=== PATIENT | male | born 1940 | race Two or more races ===

== ENCOUNTER 2018-09-19 21:47 | Inpatient (IN) | payer OTHER, MEDICAID ==
[~2018-09-19] VITALS: Ht 175.3 cm; Wt 68.4 kg
[~2018-09-19 21:47] MED LIST: CHOL20007 PO; CYAN100042 PO; NORT25CA PO; RASA1TAB PO
[2018-09-19] MEDS ORDERED: ACETAMINOPHEN 325 MG TAB PO ONE (22:15)
[2018-09-19 22:47] LABS: Potassium 3.7 mmol/L (3.5-5.1)
[2018-09-19 22:49] LABS: Albumin 2.4 g/dL (3.4-5.0); Calcium 8.1 mg/dL (8.5-10.1)
[2018-09-19 22:55] LABS: Bilirubin, Total 0.9 mg/dL (0.2-1.0); Hematocrit 37.8 % (41.0-53.0); Hemoglobin 12.6 g/dL (13.5-17.5); Mean Corpuscular Hemoglobin 29.1 pg (28.0-32.0); Mean Corpuscular Hgb Conc. 33.4 g/dL (32.0-36.0); Mean Corpuscular Volume 87.3 fL (80.0-100.0); Platelet Count (auto) 176 10^3/uL (140-450); Red Blood Cells 4.33 10^6/uL (4.5-5.90); Red Cell Distribution Width 14.6 % (11.8-14.3); Total Protein 6.4 g/dL (6.4-8.2)
[2018-09-19 22:56] LABS: Lactic Acid w/Reflex 5.8 mmol/L (0.4-2.0)
[2018-09-19 22:58] LABS: White Blood Cell 1.4 10^3/uL (4.4-10.8)
[2018-09-19 22:59] LABS: Basophils % (manual) 0 (0.0-2.0); Blast Cells 0; Eosinophils % (manual) 0 (0-7); Metamyelocytes % 0; Myelocytes % 0; Promyelocytes % 0; Reactive Lymphocytes 0
[2018-09-19 23:13] LABS: Band Neutrophils % (manual) 2; Lymphocytes % (manual) 11 (10.0-50.0); Monocytes % (manual) 4 (0-12)
[2018-09-20] VITALS (65 sets, daily range): BP systolic 89–151; BP diastolic 31–91
[2018-09-20] MEDS ORDERED: SODIUM CHLORIDE 0.9% 1,900 ML IV ONE
[2018-09-20] MEDS ORDERED: PIPERACILLIN-TAZOB 3.375GM 100 ML IV ONE
[2018-09-20] MEDS ORDERED: LORazepam 2MG/ML-1ML VIAL IV ONE
[2018-09-20] MEDS ORDERED: VANCOMYCIN 1GM/250ML 250 ML IV ONE (00:45)
[2018-09-20] MEDS ORDERED: SODIUM CHLORIDE 0.9% 1,000 ML IV ONE ×2 (01:45→16:45)
[2018-09-20] MEDS ORDERED: NOREPINEPHRINE 8 MG/250ML KIT 250 ML IV ONE (01:53)
[2018-09-20] MEDS: NOREPINEPHRINE 8 MG/250ML KIT 250 ML IV SCH (02:06)
[2018-09-20] MEDS ORDERED: ACETAMINOPHEN 325 MG TAB PO PRN (03:00)
[2018-09-20] MEDS ORDERED: ALBUMIN 5% 250 ML IV ONE (03:00)
[2018-09-20] MEDS ORDERED: VANCOMYCIN PER PHARMACY 0 MG IV SCH (03:00)
[2018-09-20] MEDS ORDERED: SODIUM CHLORIDE 0.9% 1,000 ML IV SCH (03:00)
[2018-09-20] MEDS ORDERED: MORPHINE SULF INJ 2 MG/ML SYRINGE 1ML IV PRN (03:00)
[2018-09-20] MEDS ORDERED: HYDROcodone-ACET 5/325MG TAB PO PRN (03:00)
[2018-09-20] MEDS ORDERED: ONDANSETRON HCL 4 MG/2 ML VIAL IV PRN (03:00)
[2018-09-20] MEDS ORDERED: NITROGLYCERIN 0.4 MG SL TAB SL PRN (03:00)
[2018-09-20 03:43] LABS: Urine Bacteria MANY /hpf (None Seen); Urine Blood 2+ /uL (Negative); Urine Specific Gravity 1.011 (1.001-1.035); Urine WBC 943 /hpf (0 - 3); Urine WBC Clumps PRESENT /hpf (None Seen)
[2018-09-20] MEDS ORDERED: FILGRASTIM(TBO) 480 MCG/0.8 ML SYRG SC ONE (04:00)
--- NOTE | 2018-09-20 05:08 | NUR ---
Pt being admitted to ICU from [facility] C admitted to ICU via gurney on bow maker custom, and portable 02. Patient transferred to bed, connected to ICU monitoring and oxygen, and weighed by bed scale. Patient oriented to Jolly hunt RN, unit, room, bed, and unit policies regarding patient care and visiting hours. All questions and concerns addressed, patient verbalized understanding. NOTE: in the ICU waiting area
--- NOTE | 2018-09-20 05:20 | NUR ---
AT BEDSIDE Talked to patient's Ampella. She speaks Romanian as well but was able to understand and talk a little bit [place]. Admission assessment done with
--- NOTE | 2018-09-20 05:31 | NUR ---
THE FOLLOWING CONSULTS WERE PLACED BY ER: CARDIO: DR TRACEY NEPHRO: DR MUIR HEMATO/ONCO: DR ARELLANO
[2018-09-20] MEDS ORDERED: POM PO (05:47)
[2018-09-20] MEDS ORDERED: TAMS0.4C36 PO (05:48)
[2018-09-20] MEDS: PIPERACILLIN-TAZOB 2.25GM 50 ML IV SCH ×3 (06:22→18:15)
--- NOTE | 2018-09-20 06:58 | NUR ---
GRANIX ORDER GRANIX ORDER JUST CAME OUT FROM [facility] BUT TIMED AT 0400HRS WILL CALL PHARMACY TO SUPPLY
--- NOTE | 2018-09-20 07:00 | NUR ---
REPORT REPORT GIVEN TO NAM CAROLINA
--- NOTE | 2018-09-20 07:00 | NUR ---
CARBIDOPA MEDICATION NOT AVAILABLE IN [facility] CALLED PHARMACIST TO SUPPLY
--- NOTE | 2018-09-20 07:00 | NUR ---
SBAR REPORT RECEIVED FROM NAM SEE. SEE PX.
[2018-09-20] MEDS: CARBIDOPA W LEVODOPA 10/100mg TABLET PO SCH ×3 (08:14→22:23)
[2018-09-20] MEDS ORDERED: SODIUM BICARBONATE 50ML VIAL 50 ML in D5W/SOD CHL 0.45% 1,000 ML IV SCH (10:00)
--- NOTE | 2018-09-20 10:00 | NUR ---
DR. MUIR AT BEDSIDE-BICARB DRIP AND U/A ORDERED.
[2018-09-20] MEDS: ASPirin 81 mg TAB PO SCH (10:21)
[2018-09-20] MEDS ORDERED: SODIUM BICARBONATE 8.4% INJ 50ML SYRINGE ONE (10:24)
[2018-09-20 10:46] LABS: Protein, Urine 70.3 mg/dL (0.0-11.9)
--- NOTE | 2018-09-20 13:25 | NUR ---
DR. TRACEY AWARE OF TROPS AND ORDERED ECHO.
--- NOTE | 2018-09-20 13:31 | NUR ---
PATIENT SEEN BY DR. MUIR- URINE ORDERED AND SENT. CHANGED IVF TO 06/07 NS BICARB.
--- NOTE | 2018-09-20 13:46 | NUR ---
PER RENAL US CARUSO IN THE PROSTATIC AREA-AFTER DEFLATING 10CC BALLOON -REINSERTED THE CARUSO, AND IRRIGATED. HOWEVER, CARUSO WAS DRAINING WELL ALL MORNING.
--- NOTE | 2018-09-20 16:25 | NUR ---
PATIENT WITH LABILE BLOOD PRESSURE-ONLY ABLE TO TITRATE IN SMALL INCREMENTS AT A TIME.
--- NOTE | 2018-09-20 16:30 | NUR ---
SPOKE WITH DR. GUERRERO AND CYSTOSCOPY ORDERED FOR TOMORROW- (CARUSO PLACEMENT).
--- NOTE | 2018-09-20 16:43 | NUR ---
DR. SARMIENTO AT BEDSIDE- AWARE OF BLOOD CULTURES (PATIENT ON ZOSYN). ORDERED ONE LITER BOLUS.
--- NOTE | 2018-09-20 16:58 | NUR ---
CARUSO CATHETER STILL DRAINING HOWEVER, ANOTHER RENAL US ORDER AND ATTEMPTED TO ADVANCE FOR THE 2ND TIME AND UNSUCCESSFUL. LEFT MESSAGE FOR DR. GUERRERO FOR STAT CARUSO PLACEMENT.
[2018-09-20] MEDS ORDERED: LIDOCAINE 2% JELLY 11ml (GLYDO) ONE (17:06)
[2018-09-20] MEDS ORDERED: FILGRASTIM (TBO) 300 MCG/0.5 ML SYRG SC SCH (17:30)
[2018-09-20] MEDS ORDERED: FILGRASTIM(TBO) 480 MCG/0.8 ML SYRG SC SCH (18:00)
[2018-09-20 18:28] LABS: Hemoglobin 10.5 g/dL (13.5-17.5)
[2018-09-20 18:31] LABS: Hematocrit 31.7 % (41.0-53.0); Mean Corpuscular Hgb Conc. 33.3 g/dL (32.0-36.0); Mean Corpuscular Volume 87.3 fL (80.0-100.0); Platelet Count (auto) 169 10^3/uL (140-450); Red Blood Cells 3.63 10^6/uL (4.5-5.90); Red Cell Distribution Width 15.5 % (11.8-14.3)
[2018-09-20 18:47] LABS: BUN/Creatinine Ratio 22.2; Calcium 7.3 mg/dL (8.5-10.1); INR 1.11 (0.9-1.15); Magnesium 2.1 mg/dL (1.6-2.6); Partial Thromboplastin Time 32.4 sec (23.78-33.04); Potassium 3.7 mmol/L (3.5-5.1); Prothrombin Time 11.8 sec (9.27-12.13)
[2018-09-20 18:49] LABS: Bilirubin, Total 1.4 mg/dL (0.2-1.0); Total Protein 5.4 g/dL (6.4-8.2)
[2018-09-20 19:05] LABS: White Blood Cell 33.2 10^3/uL (4.4-10.8)
[2018-09-20 19:06] LABS: Basophils % (manual) 0 (0.0-2.0); Blast Cells 0; Eosinophils % (manual) 0 (0-7); Metamyelocytes % 0; Myelocytes % 0; Promyelocytes % 0; Reactive Lymphocytes 0
--- NOTE | 2018-09-20 19:26 | NUR ---
DR. ARVIZU AT BEDSIDE- D/C [facility] [place] WBC'S ELEVATED.
[2018-09-20 19:32] LABS: Red Blood Cells 3.48 10^6/uL (4.5-5.90)
[2018-09-20 19:37] LABS: Hematocrit 30.4 % (41.0-53.0); Hemoglobin 10.2 g/dL (13.5-17.5); Mean Corpuscular Hemoglobin 29.2 pg (28.0-32.0); Mean Corpuscular Hgb Conc. 33.4 g/dL (32.0-36.0); Mean Corpuscular Volume 87.4 fL (80.0-100.0); Platelet Count (auto) 156 10^3/uL (140-450); Red Cell Distribution Width 14.9 % (11.8-14.3)
--- NOTE | 2018-09-20 19:59 | NUR ---
SBAR REPORT GIVEN TO NAM ASLDANA.
[2018-09-20 20:12] LABS: White Blood Cell 30.8 10^3/uL (4.4-10.8)
[2018-09-20 20:13] LABS: Basophils % (manual) 0 (0.0-2.0); Blast Cells 0; Eosinophils % (manual) 0 (0-7); Metamyelocytes % 0; Myelocytes % 0; Promyelocytes % 0; Reactive Lymphocytes 0
--- NOTE | 2018-09-20 20:35 | NUR ---
provided pt. with frank-care as pt. had bm-moderate, brown, soft, formed; pt. also had partial linen change.
[2018-09-20 21:11] LABS: Band Neutrophils % (manual) 21; Lymphocytes % (manual) 2 (10.0-50.0)
[2018-09-20 21:12] LABS: Monocytes % (manual) 4 (0-12)
[2018-09-20 21:21] LABS: Band Neutrophils % (manual) 21; Lymphocytes % (manual) 1 (10.0-50.0); Monocytes % (manual) 3 (0-12)
--- NOTE | 2018-09-20 23:00 | NUR ---
computers are on down time from [id number], see chart for hard copy of vs, assessments, and interventions.
[2018-09-20] MEDS: SODIUM BICARBONATE 50ML VIAL 50 ML in D5W/SOD CHL 0.45% 1,000 ML IV SCH (23:55)
[2018-09-21] VITALS (44 sets, daily range): BP systolic 99–147; BP diastolic 41–80
[2018-09-21] MEDS: NOREPINEPHRINE 8 MG/250ML KIT 250 ML IV SCH (01:45)
[2018-09-21 05:48] LABS: Hematocrit 31.6 % (41.0-53.0); Hemoglobin 10.5 g/dL (13.5-17.5); Mean Corpuscular Hemoglobin 28.8 pg (28.0-32.0); Mean Corpuscular Hgb Conc. 33.2 g/dL (32.0-36.0); Mean Corpuscular Volume 86.8 fL (80.0-100.0); Platelet Count (auto) 163 10^3/uL (140-450); Red Blood Cells 3.64 10^6/uL (4.5-5.90); Red Cell Distribution Width 14.9 % (11.8-14.3)
[2018-09-21 05:51] LABS: Basophils % (manual) 0 (0.0-2.0); Blast Cells 0; Eosinophils % (manual) 0 (0-7); Metamyelocytes % 0; Myelocytes % 0; Promyelocytes % 0; Reactive Lymphocytes 0; White Blood Cell 32.7 10^3/uL (4.4-10.8)
[2018-09-21] MEDS: PIPERACILLIN-TAZOB 2.25GM 50 ML IV SCH ×2 (06:01)
[2018-09-21 06:03] LABS: INR 1.09 (0.9-1.15); Partial Thromboplastin Time 32.4 sec (23.78-33.04); Prothrombin Time 11.6 sec (9.27-12.13)
[2018-09-21 06:11] LABS: Potassium 3.2 mmol/L (3.5-5.1)
[2018-09-21 06:20] LABS: BUN/Creatinine Ratio 23.1; Bilirubin, Direct 0.8 mg/dL (0-0.2); Calcium 7.7 mg/dL (8.5-10.1); Magnesium 2.2 mg/dL (1.6-2.6); Total Protein 5.5 g/dL (6.4-8.2)
[2018-09-21] MEDS: CARBIDOPA W LEVODOPA 10/100mg TABLET PO SCH ×3 (06:24→21:41)
--- NOTE | 2018-09-21 06:24 | NUR ---
brushed pt. teeth per request and washed face.
--- NOTE | 2018-09-21 07:00 | NUR ---
SBAR report received from Agatha. See Px assessment.
--- NOTE | 2018-09-21 08:20 | NUR ---
Patient seen by Dr. Sevilla ([facility] and Christ) ordered for elevated WBC's (zosyn discontinued).
[2018-09-21] MEDS ORDERED: VANCOMYCIN 1GM/250ML 250 ML IV ONE (08:30)
[2018-09-21 09:42] LABS: Band Neutrophils % (manual) 24; Lymphocytes % (manual) 1 (10.0-50.0); Monocytes % (manual) 4 (0-12)
[2018-09-21] MEDS: SODIUM BICARBONATE 50ML VIAL 50 ML in D5W/SOD CHL 0.45% 1,000 ML IV SCH (10:00)
[2018-09-21] MEDS: MEROPENEM 1GM IVPB 100 ML IV SCH ×2 (10:07→21:52)
[2018-09-21] MEDS: ASPirin 81 mg TAB PO SCH (10:11)
--- NOTE | 2018-09-21 11:11 | NUR ---
Dr. Jorgensen at bedside- inserted coude catheter with lidocaine jelly. Per Dr. Jorgensen patient had prior surgery and requires a 30cc balloon inserted because the 10cc balloon would retract back in the urethra prostate area,. Patient tolerated well. at bedside. Addendum: 09/21/18 at 1534 by Bre Sifuentes RN No surgery required (cystoscopy cancelled).
--- NOTE | 2018-09-21 12:25 | NUR ---
Patient seen by Dr. Rowland- [facility] and oral potassium order for low phos and k+.
[2018-09-21] MEDS ORDERED: POTASSIUM CHL 20 Meq TABLET PO ONE (12:30)
[2018-09-21] MEDS ORDERED: POTASSIUM PHOSPHATE 44 MEQ in D5W 5% 250 ML IV ONE (12:30)
--- NOTE | 2018-09-21 15:31 | NUR ---
RADHAAR report given to NAM Márquez. Patient will be going to room 295B. Addendum: 09/21/18 at 1625 by Bre Sifuentes RN changed to room 277B.
--- NOTE | 2018-09-21 16:15 | NUR ---
Patient transported to room 277B- patient on tele box and portable oxygen, tolerating well.
--- NOTE | 2018-09-21 16:30 | NUR ---
PATIENT TRANSFERRED FROM ICU TO TELEMETRY, ROOM 277B. PATIENT AND FAMILY MEMBERS ORIENTED TO RN AND ROOM. NO SIGNS OF DISTRESS OT PAIN. CALL ROBERT WITHING REACH AND BED IN LOWEST LOCKED POSITION WITH SIDE RAILS UP X2. WILL CONTINUE TO MONITOR PATIENT. ENCOURAGED TO CALL IF THEY NEED ANYTHING.
--- NOTE | 2018-09-21 19:41 | NUR ---
RECEIVED REPORT FROM DAY RN POC REVIEWED
--- NOTE | 2018-09-21 20:20 | NUR ---
PT POSITIONED Q 2 HR, POSITIONED WITH HOB UP, NO C/O PAIN OR DISCOMFORT,CALL LIGHT WITHIN REACH BED ALARM INTACT, F/C TO GRAVITY
[2018-09-21 21:49] LABS: Basophils # (auto) 0.1 uL; Basophils % (auto) 0.2 % (0.0-2.0); Eosinophils # (auto) 0 uL; Eosinophils % (auto) 0.1 % (0.0-7.0); Hematocrit 31.8 % (41.0-53.0); Hemoglobin 10.5 g/dL (13.5-17.5); Lymphocytes # (auto) 0.6 uL; Lymphocytes % (auto) 2.3 % (10.0-50.0); Mean Corpuscular Hemoglobin 28.9 pg (28.0-32.0); Mean Corpuscular Hgb Conc. 33.1 g/dL (32.0-36.0); Mean Corpuscular Volume 87.4 fL (80.0-100.0); Monocytes # (auto) 0.8 uL; Monocytes % (auto) 3.1 % (0.0-12.0); Neutrophils # (auto) 24.5 uL; Neutrophils % (auto) 94.3 % (37.0-80.0); Platelet Count (auto) 157 10^3/uL (140-450); Red Blood Cells 3.64 10^6/uL (4.5-5.90); Red Cell Distribution Width 15.6 % (11.8-14.3)
[2018-09-21 21:57] LABS: Calcium 7.8 mg/dL (8.5-10.1); Potassium 3.4 mmol/L (3.5-5.1)
[2018-09-21 22:00] LABS: BUN/Creatinine Ratio 22.5
[2018-09-22] MEDS: SODIUM BICARBONATE 50ML VIAL 50 ML in D5W/SOD CHL 0.45% 1,000 ML IV SCH ×2 (00:10→03:06)
[2018-09-22 05:01] VITALS: BP 103/62
--- NOTE | 2018-09-22 05:06 | NUR ---
turned and repositioned with hob up resp even and unlabored, denies pain or discomfort, call light within reach
[2018-09-22 05:57] LABS: Basophils # (auto) 0 uL; Basophils % (auto) 0.2 % (0.0-2.0); Eosinophils # (auto) 0.1 uL; Eosinophils % (auto) 0.3 % (0.0-7.0); Hematocrit 30.3 % (41.0-53.0); Hemoglobin 10.2 g/dL (13.5-17.5); Lymphocytes # (auto) 0.8 uL; Lymphocytes % (auto) 3.5 % (10.0-50.0); Mean Corpuscular Hemoglobin 28.9 pg (28.0-32.0); Mean Corpuscular Hgb Conc. 33.7 g/dL (32.0-36.0); Mean Corpuscular Volume 85.6 fL (80.0-100.0); Monocytes # (auto) 0.7 uL; Monocytes % (auto) 3.1 % (0.0-12.0); Neutrophils # (auto) 20.7 uL; Neutrophils % (auto) 92.9 % (37.0-80.0); Nucleated Red Blood Cells % 0.1 %; Platelet Count (auto) 163 10^3/uL (140-450); Red Blood Cells 3.54 10^6/uL (4.5-5.90); Red Cell Distribution Width 15.2 % (11.8-14.3); White Blood Cell 22.3 10^3/uL (4.4-10.8)
[2018-09-22 06:10] LABS: Potassium 3.4 mmol/L (3.5-5.1)
[2018-09-22 06:13] LABS: Albumin 1.7 g/dL (3.4-5.0); Calcium 7.9 mg/dL (8.5-10.1)
[2018-09-22 06:19] LABS: BUN/Creatinine Ratio 22.3; Total Protein 5.1 g/dL (6.4-8.2)
[2018-09-22] MEDS: CARBIDOPA W LEVODOPA 10/100mg TABLET PO SCH ×3 (06:55→22:00)
--- NOTE | 2018-09-22 07:15 | NUR ---
Opening note Assumed care of pt from security shift supervisor nurse. Pt presented A&Ox4 in bed. Pt is Estonian speaking with very little Mongolian spoken. Rt forearm 20g and lt hand 20g IVs present and patent.2L 02running via nasal canula. Pt has a pete in place with a 30ml balloon. Pt is not in any distress, pain or SOB.
[2018-09-22 09:00] VITALS: BP 130/67
[2018-09-22] MEDS: ASPirin 81 mg TAB PO SCH (10:21)
--- NOTE | 2018-09-22 10:28 | NUR ---
LUDMILA RENDON AT BEDSIDE TO SPEAK WITH THE FAMILY CONCERNING THE POSSIBILITY OF BEING DISCHARGED TO A SNF. THE FAMILY REFUSED AND THEY WANT TO TAKE THE PATIENT HOME. DR. SARMIENTO NOTIFIED. WILL TRY TO OBTAIN ORDER FOR HOME HEALTH INSTEAD.
[2018-09-22] MEDS: LEVOFLOXACIN 750MG 150 ML IV SCH (10:34)
--- NOTE | 2018-09-22 12:54 | NUR ---
patient off unit to nuclear medicine for bone scan.
--- NOTE | 2018-09-22 12:57 | NUR ---
message left with Dr. Sevilla informing him that the recommendation for the patient's discharge was home health. awaiting return call.
[2018-09-22] MEDS: POTASSIUM CHLORIDE IV SCH (13:36)
[2018-09-22] MEDS: [UNRECOGNIZED DRUG - OTHER] IV SCH (13:36)
[2018-09-22] MEDS: SODIUM BICARBONATE IV SCH (13:36)
[2018-09-22 15:22] VITALS: BP 129/69
--- NOTE | 2018-09-22 16:28 | NUR ---
assessment Patient is a 78 year old male who is confused. Per patients Giselle who is at bedside Prior to admission patient lived home with her and family and functioned with assistance. Per Ampellen patient is to return home with her and family on discharge. Patients PCP is Dr Davis. Patient has a fww and a cane for home use. I informed Giselle patient has an order for SNF placement. Giselle refused placement stating her will return home with family. Per ss consult home health , home safety, and PT. order has been sent to [facility], Per traci nobles nurses, Andrea, radha Nobles nurses, Deanne Lopez, Per [facility] she has accepted patient for service on 09/25/18. Order has been sent to [facility]/ senior case manager for auth. Addendum: 09/22/18 at 1706 by Candice ROBERTS Amended: Links added.
[2018-09-22 17:00] VITALS: BP 130/72
--- NOTE | 2018-09-22 19:48 | NUR ---
OPENING NOTES RECEIVED REPORT FROM DAYSTXFT NURSE. PT IS A/OX3 WITH NO S/S OF DISTRESS NOR PAIN WHILE ON 2 L OF O2 VIA N/C. PT IS UNCOOPERATIVE WITH ASSESSMENT. CARUSO BAG IS BELOW THE BLADDER AND SECURED AND PATENT AND DRAINING. BED IS IN LOWEST POSITION WITH SIDE RAILS UP X 2. BED BRAKES ARE LOCKED AND CALL LIGHT IS WITH IN REACH. HOB IS 30 DEGREES. WILL CONTINUE TO MONITOR Q 1 HR.
[2018-09-22 22:28] VITALS: BP 147/74
--- NOTE | 2018-09-23 01:21 | NUR ---
IV FLUIDS UNABLE TO GIVEN NEW BAG OF IV FLUIDS DUE TO PRIOR BAG NOT COMPLETELY INFUSED. WILL ADMINISTER NEW BAG JUDI.
--- NOTE | 2018-09-23 03:21 | NUR ---
ROUNDING PT CLAIMS TO SEE FAMILY MEMBERS PRESENT IN ROOM, THEN SAID "WELL THEY'RE NOT HERE ARE THEY," REORIENTATION WAS DONE.
[2018-09-23 05:32] VITALS: BP 127/74
[2018-09-23] MEDS: POTASSIUM CHLORIDE IV SCH (05:44)
[2018-09-23] MEDS: [UNRECOGNIZED DRUG - OTHER] IV SCH (05:44)
[2018-09-23] MEDS: SODIUM BICARBONATE IV SCH (05:44)
[2018-09-23] MEDS: CARBIDOPA W LEVODOPA 10/100mg TABLET PO SCH (06:00)
[2018-09-23 06:35] LABS: Basophils # (auto) 0.1 uL; Basophils % (auto) 0.5 % (0.0-2.0); Eosinophils # (auto) 0.1 uL; Eosinophils % (auto) 0.9 % (0.0-7.0); Hematocrit 32.9 % (41.0-53.0); Lymphocytes # (auto) 0.7 uL; Lymphocytes % (auto) 5.9 % (10.0-50.0); Mean Corpuscular Hemoglobin 28.9 pg (28.0-32.0); Mean Corpuscular Hgb Conc. 33.4 g/dL (32.0-36.0); Mean Corpuscular Volume 86.7 fL (80.0-100.0); Monocytes # (auto) 0.8 uL; Neutrophils # (auto) 10.4 uL; Neutrophils % (auto) 85.7 % (37.0-80.0); Platelet Count (auto) 220 10^3/uL (140-450); Red Blood Cells 3.79 10^6/uL (4.5-5.90); White Blood Cell 12.1 10^3/uL (4.4-10.8)
[2018-09-23 06:53] LABS: Calcium 7.6 mg/dL (8.5-10.1); Potassium 3.7 mmol/L (3.5-5.1)
[2018-09-23 06:55] LABS: BUN/Creatinine Ratio 17.5
--- NOTE | 2018-09-23 07:15 | NUR ---
endorsed care to day shift RNWilli.
[2018-09-23] MEDS ORDERED: SOD CHL 0.45% 1,000 ML IV SCH (08:45)
[2018-09-23 09:00] VITALS: BP 141/72
--- NOTE | 2018-09-23 09:48 | NUR ---
Spoke with [facility] rifle case repairer and she informed me that the patient is approved for their home health and they will be contacting the patient. Will let the patient and his family know.
[2018-09-23] MEDS: ASPirin 81 mg TAB PO SCH (09:49)
[2018-09-23] MEDS: LEVOFLOXACIN 750MG 150 ML IV SCH (09:49)
[2018-09-23] MEDS ORDERED: LEVO750T2 PO (10:03)
[2018-09-23 12:18] VITALS: BP 140/66
--- NOTE | 2018-09-23 12:18 | NUR ---
Discharge instructions given as ordered. Encourage to follow up with PMD as instructed. All questions and concerns addressed. Patient verbalized understanding. Medications sent electronically to the patient's pharmacy. IV removed with catheter intact, pressure dressing applied, pete catheter left in place per Dr. Jorgensen's recommendation. Pete bag converted to leg bag. Family made aware of catheter care. Telemetry unit returned to [facility]. Patient taken to vehicle via wheelchair with all personal belongings, accompanied by staff and family member. No distress noted at time of departure.
--- NOTE | 2018-09-25 10:29 | NUR ---
re-assessment Per Payal woodall [facility] she has sent Deanne Light the authorization. Addendum: 09/25/18 at 1030 by Candice ROBERTS Amended: Links added.
== END 2018-09-23 12:13 | disposition home health service (06) | DRG 871 ==
LOC: EDUNIT# 21:47 → EDBD 21:47 → ER 21:56 → TELE 09-20 03:07 → ICU WEST 09-20 05:03 → WEST WING 09-21 16:43 → TELE-WESTW 09-21 16:52
PROVIDERS: ADMIT Nurse Practitioner; ATTEND Internal Medicine
PROC: 0T9B70Z Drainage of Bladder with Drainage Device, Via Natural or Artificial Opening (ICD-10-PCS; principal; 2018-09-20)
DX: A41.9 Sepsis, unspecified organism (principal); R65.21 Severe sepsis with septic shock; N17.0 Acute kidney failure with tubular necrosis; J15.0 Pneumonia due to Klebsiella pneumoniae; E87.1 Hypo-osmolality and hyponatremia; D61.818 Other pancytopenia; N39.0 Urinary tract infection, site not specified; E87.0 Hyperosmolality and hypernatremia; I13.0 Hypertensive heart and chronic kidney disease with heart failure and stage 1 through stage 4 chronic kidney disease, or unspecified chronic kidney disease; I50.22 Chronic systolic (congestive) heart failure; T83.028A Displacement of other urinary catheter, initial encounter; N18.9 Chronic kidney disease, unspecified; B96.20 Unspecified Escherichia coli [E. coli] as the cause of diseases classified elsewhere; E86.0 Dehydration; E87.6 Hypokalemia; G20 Parkinson's disease; N20.0 Calculus of kidney; I07.1 Rheumatic tricuspid insufficiency; E83.39 Other disorders of phosphorus metabolism; N13.9 Obstructive and reflux uropathy, unspecified; N28.1 Cyst of kidney, acquired; N40.1 Benign prostatic hyperplasia with lower urinary tract symptoms; R33.8 Other retention of urine; Y84.8 Other medical procedures as the cause of abnormal reaction of the patient, or of later complication, without mention of misadventure at the time of the procedure; R50.81 Fever presenting with conditions classified elsewhere; Z90.79 Acquired absence of other genital organ(s); Y92.89 Other specified places as the place of occurrence of the external cause
CPT/HCPCS: 36415; 36600; 71045; 74176; 76705; 76775; 78306; 80048; 80053; 80076; 80202; 81001; 82306; 82570; 82805; 83605; 83735; 83880; 83970; 84100; 84154; 84156; 84300; 84484; 84550; 85007; 85025; 85027; 85610; 85730; 87040; 87077; 87081; 87086; 87088; 87186; 87804; 93005; 93306; 96361; 96365; 96367; 96375; G0378; J1447; J1956; J2185; J2543; J7060

== ENCOUNTER 2021-09-18 23:27 | Inpatient (IN) | payer OTHER, MEDICAID ==
[~2021-09-18] VITALS: Ht 165.1 cm; Wt 60.9 kg
[~2021-09-18 23:27] MED LIST changes: -CHOL20007 PO; -CYAN100042 PO; +LEVO750T8 PO; -NORT25CA PO; -RASA1TAB PO; +TAMS0.4C36 PO
[2021-09-19 00:33] LABS: Basophils # (auto) 0.1 10 ^3/uL (0-0.2); Basophils % (auto) 1.3 % (0.0-2.0); Eosinophils # (auto) 0.2 10 ^3/uL (0-0.8); Eosinophils % (auto) 2.4 % (0.0-7.0); Hematocrit 41.4 % (41.0-53.0); Hemoglobin 14.1 g/dL (13.5-17.5); Lymphocytes # (auto) 0.8 10 ^3/uL (0.4-5.4); Lymphocytes % (auto) 7.7 % (10.0-50.0); Mean Corpuscular Hemoglobin 30.1 pg (28.0-32.0); Mean Corpuscular Hgb Conc. 34.2 g/dL (32.0-36.0); Mean Corpuscular Volume 88.2 fL (80.0-100.0); Monocytes # (auto) 0.6 10 ^3/uL (0-1.3); Monocytes % (auto) 5.9 % (0.0-12.0); Neutrophils # (auto) 8.5 10 ^3/uL (1.6-8.6); Neutrophils % (auto) 82.7 % (37.0-80.0); Red Blood Cells 4.69 10^6/uL (4.5-5.90); White Blood Cell 10.2 10^3/uL (4.4-10.8)
[2021-09-19 00:53] LABS: Albumin 3.2 g/dL (3.4-5.0); BUN/Creatinine Ratio 21.7; Calcium 8.6 mg/dL (8.5-10.1)
[2021-09-19 00:56] LABS: Bilirubin, Total 0.7 mg/dL (0.2-1.0); Total Protein 6.6 g/dL (6.4-8.2)
[2021-09-19 01:05] LABS: INR 1.06 (0.9-1.15)
[2021-09-19] MEDS ORDERED: HYDROcodone-ACET 5/325MG TAB PO PRN (06:00)
[2021-09-19] MEDS ORDERED: ACETAMINOPHEN 325 MG TAB PO PRN (06:00)
[2021-09-19] MEDS: CARBIDOPA W LEVODOPA 25/100mg TABLET PO SCH ×3 (06:00→21:07)
[2021-09-19] MEDS: MORPHINE SULFATE INJECTION 2 MG/ML SYRG IV PRN ×2 (06:16→12:46)
[2021-09-19] MEDS: TAMSULOSIN HYDROCHLORIDE 0.4 MG CAP PO SCH (10:00)
[2021-09-19 12:41] VITALS: BP 146/81
[2021-09-19 17:00] VITALS: BP 124/61
[2021-09-19 20:06] LABS: BUN/Creatinine Ratio 24.5; Calcium 8.7 mg/dL (8.5-10.1); Potassium 4.1 mmol/L (3.5-5.1)
[2021-09-19 22:00] VITALS: BP 147/72
[2021-09-20 05:00] VITALS: BP 126/75
[2021-09-20] MEDS: CARBIDOPA W LEVODOPA 25/100mg TABLET PO SCH (05:21)
[2021-09-20 07:02] LABS: Potassium 4.4 mmol/L (3.5-5.1)
[2021-09-20 07:04] LABS: Basophils # (auto) 0 10 ^3/uL (0-0.2); Basophils % (auto) 0.3 % (0.0-2.0); Eosinophils # (auto) 0.3 10 ^3/uL (0-0.8); Eosinophils % (auto) 2.6 % (0.0-7.0); Hematocrit 38.4 % (41.0-53.0); Hemoglobin 12.9 g/dL (13.5-17.5); Lymphocytes # (auto) 0.9 10 ^3/uL (0.4-5.4); Lymphocytes % (auto) 8.8 % (10.0-50.0); Mean Corpuscular Hemoglobin 30.1 pg (28.0-32.0); Mean Corpuscular Hgb Conc. 33.6 g/dL (32.0-36.0); Mean Corpuscular Volume 89.5 fL (80.0-100.0); Monocytes # (auto) 0.8 10 ^3/uL (0-1.3); Monocytes % (auto) 8.7 % (0.0-12.0); Neutrophils # (auto) 7.8 10 ^3/uL (1.6-8.6); Neutrophils % (auto) 79.6 % (37.0-80.0); Nucleated Red Blood Cells % 0.2 %; Red Blood Cells 4.29 10^6/uL (4.5-5.90); Red Cell Distribution Width 14.3 % (11.8-14.3); White Blood Cell 9.8 10^3/uL (4.4-10.8)
[2021-09-20 08:00] VITALS: BP 154/59
[2021-09-20 08:50] VITALS: BP 124/59
[2021-09-20] MEDS: TAMSULOSIN HYDROCHLORIDE 0.4 MG CAP PO SCH (10:43)
== END 2021-09-20 13:26 | disposition home or self-care (01) | DRG 536 ==
LOC: ER 23:27 → EDBD 23:27 → OVERFLOW 09-19 05:51 → CENTRAL 09-19 09:16 → TELE-CENTR 09-19 22:06
PROVIDERS: ADMIT Internal Medicine; ATTEND Internal Medicine
DX: S72.001A Fracture of unspecified part of neck of right femur, initial encounter for closed fracture (principal); W18.39XA Other fall on same level, initial encounter; F02.80 Dementia in other diseases classified elsewhere, unspecified severity, without behavioral disturbance, psychotic disturbance, mood disturbance, and anxiety; G20 Parkinson's disease; N40.0 Benign prostatic hyperplasia without lower urinary tract symptoms; Z20.822 Contact with and (suspected) exposure to COVID-19; Y93.89 Activity, other specified; Y92.090 Kitchen in other non-institutional residence as the place of occurrence of the external cause; Y99.8 Other external cause status
CPT/HCPCS: 36415; 70450; 72192; 80048; 80053; 83735; 85025; 85610; 85730; 93005; G0378

== ENCOUNTER 2022-02-14 05:59 | Inpatient (IN) | payer OTHER, MEDICAID ==
[~2022-02-14] VITALS: Ht 157.5 cm; Wt 56.9 kg
[2022-02-14] MEDS ORDERED: SODIUM CHLORIDE 0.9% 1,000 ML IV ONE (06:30)
[2022-02-14] MEDS ORDERED: PANTOPRAZOLE 40 MG/10 ML VIAL INJ IV ONE (06:30)
[2022-02-14 07:14] LABS: Urine Bacteria NONE SEEN /hpf (None Seen); Urine Blood 1+ /uL (Negative); Urine Mucus MODERATE (None Seen); Urine Specific Gravity 1.033 (1.001-1.035); Urine WBC 3 /hpf (0 - 3)
[2022-02-14 07:37] LABS: Basophils # (auto) 0 10 ^3/uL (0-0.2); Basophils % (auto) 0.2 % (0.0-2.0); Eosinophils # (auto) 0 10 ^3/uL (0-0.8); Hematocrit 38.3 % (41.0-53.0); Hemoglobin 12.4 g/dL (13.5-17.5); Lymphocytes # (auto) 0.4 10 ^3/uL (0.4-5.4); Mean Corpuscular Hemoglobin 28.3 pg (28.0-32.0); Mean Corpuscular Hgb Conc. 32.5 g/dL (32.0-36.0); Mean Corpuscular Volume 87.2 fL (80.0-100.0); Monocytes # (auto) 0.6 10 ^3/uL (0-1.3); Monocytes % (auto) 5.7 % (0.0-12.0); Neutrophils # (auto) 9.8 10 ^3/uL (1.6-8.6); Neutrophils % (auto) 90.1 % (37.0-80.0); Red Blood Cells 4.39 10^6/uL (4.5-5.90); White Blood Cell 10.9 10^3/uL (4.4-10.8)
[2022-02-14 08:03] LABS: INR 1.05 (0.9-1.15); Partial Thromboplastin Time 27.6 sec (24.6-33.4)
[2022-02-14 08:04] LABS: Albumin 2.9 g/dL (3.4-5.0); Calcium 8.3 mg/dL (8.5-10.1); Magnesium 2.1 mg/dL (1.6-2.6)
[2022-02-14 08:09] LABS: BUN/Creatinine Ratio 39.8; Bilirubin, Total 0.5 mg/dL (0.2-1.0); Total Protein 5.9 g/dL (6.4-8.2)
[2022-02-14] MEDS ORDERED: LACTATED RINGER'S 1,000 ML IV ONE (10:15)
[2022-02-14] MEDS ORDERED: IOHEXOL 300 MG/ML 100ML BOTTLE IJ ONE (10:17)
[2022-02-14] MEDS ORDERED: NITROGLYCERIN 0.4 MG SL TAB SL PRN (13:15)
[2022-02-14] MEDS ORDERED: MORPHINE SULFATE INJ 2 MG/ml SYRG IV PRN ×3 (13:15)
[2022-02-14] MEDS ORDERED: PROMETHAZINE HCL 25 MG/ML 1ML IV PRN (13:15)
[2022-02-14] MEDS: SOD CHL 0.45% 1,000 ML IV SCH (13:24)
[2022-02-14] MEDS: metroNIDAZOLE 500MG/100ML 100 ML IV SCH ×2 (13:51→22:18)
[2022-02-14] MEDS ORDERED: hydrALAZINE HCL 20 MG/ML VL IV PRN (14:00)
[2022-02-14] MEDS: PANTOPRAZOLE 40 MG/10 ML VIAL INJ IV SCH (22:18)
[2022-02-14] MEDS: QUEtiapine FUMARATE 25 MG TAB PO SCH (22:20)
[2022-02-14 23:20] VITALS: BP 103/53
[2022-02-14 23:30] VITALS: BP 103/53
[2022-02-15] MEDS: SOD CHL 0.45% 1,000 ML IV SCH ×2 (01:11→17:56)
[2022-02-15 05:00] VITALS: BP 128/59
[2022-02-15 05:54] LABS: Basophils # (auto) 0 10 ^3/uL (0-0.2); Basophils % (auto) 0.3 % (0.0-2.0); Eosinophils # (auto) 0.1 10 ^3/uL (0-0.8); Eosinophils % (auto) 1.5 % (0.0-7.0); Hematocrit 35.9 % (41.0-53.0); Hemoglobin 11.7 g/dL (13.5-17.5); Lymphocytes # (auto) 1.5 10 ^3/uL (0.4-5.4); Lymphocytes % (auto) 17.5 % (10.0-50.0); Mean Corpuscular Hemoglobin 28.5 pg (28.0-32.0); Mean Corpuscular Hgb Conc. 32.7 g/dL (32.0-36.0); Mean Corpuscular Volume 87.1 fL (80.0-100.0); Monocytes # (auto) 0.7 10 ^3/uL (0-1.3); Monocytes % (auto) 7.6 % (0.0-12.0); Neutrophils # (auto) 6.5 10 ^3/uL (1.6-8.6); Neutrophils % (auto) 73.1 % (37.0-80.0); Red Blood Cells 4.12 10^6/uL (4.5-5.90); Red Cell Distribution Width 14.2 % (11.8-14.3); White Blood Cell 8.8 10^3/uL (4.4-10.8)
[2022-02-15] MEDS: metroNIDAZOLE 500MG/100ML 100 ML IV SCH ×3 (06:03→22:25)
[2022-02-15 06:09] LABS: Potassium 3.5 mmol/L (3.5-5.1)
[2022-02-15 06:12] LABS: Albumin 2.6 g/dL (3.4-5.0); BUN/Creatinine Ratio 24.6; Calcium 8.3 mg/dL (8.5-10.1)
[2022-02-15 06:25] LABS: Bilirubin, Total 0.8 mg/dL (0.2-1.0); Total Protein 5.4 g/dL (6.4-8.2)
[2022-02-15 08:00] VITALS: BP 112/86
[2022-02-15] MEDS ORDERED: GOLYTELY 4L KIT PO ONE (09:00)
[2022-02-15 09:18] VITALS: BP 107/52
[2022-02-15] MEDS ORDERED: ENOXAPARIN SOD 40 MG/0.4 ML SYRINGE SC SCH (10:00)
[2022-02-15] MEDS: PANTOPRAZOLE 40 MG/10 ML VIAL INJ IV SCH ×2 (10:14→22:25)
[2022-02-15] MEDS: TAMSULOSIN HYDROCHLORIDE 0.4 MG CAP PO SCH (10:14)
[2022-02-15] MEDS: cefTRIAXone 1GM/50ML D5W 50 ML IV SCH (10:14)
[2022-02-15 13:03] VITALS: BP 110/59
[2022-02-15 17:02] VITALS: BP 106/55
[2022-02-15 20:00] VITALS: BP 112/86
[2022-02-15] MEDS: QUEtiapine FUMARATE 25 MG TAB PO SCH (22:25)
[2022-02-16] MEDS: SOD CHL 0.45% 1,000 ML IV SCH (05:15)
[2022-02-16] MEDS: metroNIDAZOLE 500MG/100ML 100 ML IV SCH ×3 (05:50→23:19)
[2022-02-16] MEDS ORDERED: GOLYTELY 4L KIT PO ONE (06:00)
[2022-02-16] MEDS ORDERED: SODIUM CHLORIDE LOCK 0 ML ONE (08:21)
[2022-02-16] MEDS ORDERED: diphenhdrAMINE HCL 50 MG/1 ML VL ONE (08:22)
[2022-02-16] MEDS ORDERED: LIDOCAINE VISCOUS 2% 15ML UD ONE (08:22)
[2022-02-16] MEDS ORDERED: MIDAZOLAM HCL 5 MG/ML-1ML VIAL ONE (08:22)
[2022-02-16] MEDS ORDERED: fentaNYL CITRATE 100 MCG/2 ML VL ONE (08:23)
[2022-02-16 08:30] VITALS: BP 142/68
[2022-02-16] MEDS: cefTRIAXone 1GM/50ML D5W 50 ML IV SCH (08:47)
[2022-02-16 09:04] VITALS: BP 142/68
[2022-02-16] MEDS: PANTOPRAZOLE 40 MG/10 ML VIAL INJ IV SCH ×2 (09:08→22:19)
[2022-02-16] MEDS: TAMSULOSIN HYDROCHLORIDE 0.4 MG CAP PO SCH (09:08)
[2022-02-16] MEDS ORDERED: POTASSIUM EFFERVESENT TAB 25 MEQ PO ONE (12:00)
[2022-02-16] MEDS: D5W/SOD CHL 0.45%/KCL 20MEQ 1,000 ML IV SCH ×2 (12:07→22:19)
[2022-02-16 13:00] VITALS: BP 129/72
[2022-02-16 17:00] VITALS: BP_SYST 129; BP_SYST 131; BP_DIAS 65; BP_DIAS 72
[2022-02-16 22:00] VITALS: BP 107/54
[2022-02-16] MEDS: QUEtiapine FUMARATE 25 MG TAB PO SCH (22:19)
[2022-02-17] MEDS: D5W/SOD CHL 0.45%/KCL 20MEQ 1,000 ML IV SCH (04:47)
[2022-02-17 05:00] VITALS: BP 133/66
[2022-02-17] MEDS: metroNIDAZOLE 500MG/100ML 100 ML IV SCH ×2 (06:07→14:02)
[2022-02-17 07:09] LABS: Basophils # (auto) 0 10 ^3/uL (0-0.2); Basophils % (auto) 0.4 % (0.0-2.0); Eosinophils # (auto) 0.2 10 ^3/uL (0-0.8); Eosinophils % (auto) 2.7 % (0.0-7.0); Hematocrit 34.3 % (41.0-53.0); Hemoglobin 11.6 g/dL (13.5-17.5); Lymphocytes # (auto) 1.1 10 ^3/uL (0.4-5.4); Lymphocytes % (auto) 14.3 % (10.0-50.0); Mean Corpuscular Hemoglobin 29.1 pg (28.0-32.0); Mean Corpuscular Hgb Conc. 33.8 g/dL (32.0-36.0); Mean Corpuscular Volume 86.2 fL (80.0-100.0); Monocytes # (auto) 0.7 10 ^3/uL (0-1.3); Monocytes % (auto) 9.1 % (0.0-12.0); Neutrophils # (auto) 5.6 10 ^3/uL (1.6-8.6); Neutrophils % (auto) 73.5 % (37.0-80.0); Red Blood Cells 3.98 10^6/uL (4.5-5.90); Red Cell Distribution Width 13.9 % (11.8-14.3); White Blood Cell 7.6 10^3/uL (4.4-10.8)
[2022-02-17 07:26] LABS: Potassium 3.1 mmol/L (3.5-5.1)
[2022-02-17 07:41] LABS: BUN/Creatinine Ratio 8.5; Calcium 8.2 mg/dL (8.5-10.1)
[2022-02-17] MEDS ORDERED: SODIUM CHLORIDE LOCK 10 ML ONE (07:58)
[2022-02-17] MEDS ORDERED: MIDAZOLAM HCL 5 MG/ML-1ML VIAL ONE (07:59)
[2022-02-17] MEDS ORDERED: diphenhdrAMINE HCL 50 MG/1 ML VL ONE (07:59)
[2022-02-17 08:15] VITALS: BP 149/70
[2022-02-17] MEDS: cefTRIAXone 1GM/50ML D5W 50 ML IV SCH (08:18)
[2022-02-17] MEDS: fentaNYL CITRATE 100 MCG/2 ML VL ONE ×3 (08:44→08:55)
[2022-02-17 09:00] VITALS: BP 149/79
[2022-02-17] MEDS: PANTOPRAZOLE 40 MG/10 ML VIAL INJ IV SCH (10:11)
[2022-02-17] MEDS: TAMSULOSIN HYDROCHLORIDE 0.4 MG CAP PO SCH (10:11)
[2022-02-17 13:00] VITALS: BP 140/65
[2022-02-17] MEDS ORDERED: METR500T14 PO (14:46)
[2022-02-17] MEDS ORDERED: DOXY-286 PO (14:46)
[2022-02-17] MEDS ORDERED: POTASSIUM EFFERVESENT TAB 25 MEQ PO ONE (15:00)
[2022-02-17 15:09] VITALS: BP 140/65
[2022-02-17 17:04] VITALS: BP 130/63
== END 2022-02-17 17:15 | disposition home health service (06) | DRG 392 ==
LOC: ER 05:59 → EDBD 05:59 → OVERFLOW 13:06 → CENTRAL 22:55
PROVIDERS: ADMIT Hospitalist; ATTEND Hospitalist
PROC: 0DJD8ZZ Inspection of Lower Intestinal Tract, Via Natural or Artificial Opening Endoscopic (ICD-10-PCS; principal; 2022-02-17 08:40)
DX: K52.9 Noninfective gastroenteritis and colitis, unspecified (principal); K92.2 Gastrointestinal hemorrhage, unspecified; E44.1 Mild protein-calorie malnutrition; N40.0 Benign prostatic hyperplasia without lower urinary tract symptoms; K56.41 Fecal impaction; G20 Parkinson's disease; F02.80 Dementia in other diseases classified elsewhere, unspecified severity, without behavioral disturbance, psychotic disturbance, mood disturbance, and anxiety; Z20.822 Contact with and (suspected) exposure to COVID-19; K64.8 Other hemorrhoids; L89.150 Pressure ulcer of sacral region, unstageable; K63.9 Disease of intestine, unspecified; Z82.49 Family history of ischemic heart disease and other diseases of the circulatory system; Z68.22 Body mass index [BMI] 22.0-22.9, adult
CPT/HCPCS: 36415; 71045; 74177; 80048; 80053; 81001; 82378; 83735; 84484; 85025; 85610; 85730; 86850; 86900; 86901; 93306; 96361; 96374; C9113; G0378; J0696; J2250; J3490

== ENCOUNTER 2023-04-10 01:34 | Inpatient (IN) | payer OTHER, MEDICAID ==
[~2023-04-10] VITALS: Ht 175.3 cm; Wt 60.0 kg
[2023-04-10 01:30] LABS: Basophils % (auto) 0.2 % (0.0-2.0); Hematocrit 43.8 % (41.0-53.0); Hemoglobin 14.1 g/dL (13.5-17.5); Mean Corpuscular Hgb Conc. 32.2 g/dL (32.0-36.0); Mean Corpuscular Volume 87.1 fL (80.0-100.0); Monocytes % (auto) 5.8 % (0.0-12.0); Neutrophils # (auto) 15.2 10 ^3/uL (1.6-8.6); Neutrophils % (auto) 87.9 % (37.0-80.0); Red Blood Cells 5.03 10^6/uL (4.5-5.90); Red Cell Distribution Width 16.7 % (11.8-14.3); White Blood Cell 17.3 10^3/uL (4.4-10.8)
[~2023-04-10 01:34] MED LIST changes: +DOXY-286 PO; -LEVO750T8 PO; +METR-344 PO
[2023-04-10 01:47] LABS: INR 1.04 (0.9-1.15); Prothrombin Time 10.9 sec (9.3-11.8)
[2023-04-10 01:48] LABS: Alanine Aminotransferase 18 U/L (7-40); Albumin 4.1 g/dL (3.2-4.8); Alkaline Phosphatase 156 U/L (46-116); Anion Gap 13 (5-15); Aspartate Aminotransferase 31 U/L (13-40); BUN/Creatinine Ratio 23.6 (10.0-20.0); Bilirubin, Total 0.5 mg/dL (0.2-1.0); Blood Urea Nitrogen 30 mg/dL (9-23); Calcium 9.6 mg/dL (8.7-10.4); Carbon Dioxide 26 mmol/L (20-30); Chloride 106 mmol/L (98-107); Glucose 195 mg/dL (74-106); Potassium 3.8 mmol/L (3.5-5.1); Sodium 145 mmol/L (136-145); Total Protein 6.8 g/dL (5.7-8.2)
[2023-04-10 01:55] LABS: Lipase 784 U/L (12-53)
[2023-04-10] MEDS ORDERED: fentaNYL CITRATE 100 MCG/2 ML VL IV ONE ×2 (02:15→05:30)
[2023-04-10] MEDS ORDERED: metroNIDAZOLE 500MG/100ML 100 ML IV ONE (02:15)
[2023-04-10] MEDS ORDERED: SODIUM CHLORIDE 0.9% 1,500 ML IV ONE (02:15)
[2023-04-10] MEDS ORDERED: PIPERACILLIN-TAZOB 3.375GM 100 ML IV ONE (02:15)
[2023-04-10] MEDS ORDERED: ONDANSETRON HCL 4 MG/2 ML VIAL IV ONE (02:45)
[2023-04-10 03:02] LABS: Lactic Acid w/Reflex 5.4 mmol/L (0.4-2.0)
[2023-04-10 04:03] LABS: Urine Bacteria NONE SEEN /hpf (None Seen); Urine Blood TRACE /uL (Negative); Urine Clarity HAZY (Clear); Urine Color Yellow (Yellow); Urine Hyaline Cast FEW /lpf (0 - 2); Urine Mucus MODERATE (None Seen); Urine Protein, UAD 2+ (Negative); Urine Specific Gravity 1.027 (1.001-1.035); Urine WBC 7 /hpf (0 - 3); Urine pH 5.5 (5.0-8.0)
[2023-04-10] MEDS ORDERED: PANTOPRAZOLE 80 MG in SODIUM CHL 0.9% 100 ML IV ONE (04:15)
[2023-04-10] MEDS ORDERED: PANTOPRAZOLE 40mg/50ML NS AE 50 ML IV ONE (04:15)
[2023-04-10] MEDS ORDERED: PANTOPRAZOLE 40 MG/10 ML VIAL INJ IV ONE ×2 (04:27→04:41)
[2023-04-10] MEDS ORDERED: ALBUMIN 25% 100 ML IV ONE (05:15)
[2023-04-10] MEDS ORDERED: BENZOCAINE (DENTAL) 20 % SPRAY 60ML MT ONE (05:30)
[2023-04-10 06:55] LABS: Basophils # (auto) 0 10 ^3/uL (0-0.2); Basophils % (auto) 0.1 % (0.0-2.0); Eosinophils # (auto) 0 10 ^3/uL (0-0.8); Eosinophils % (auto) 0.1 % (0.0-7.0); Hematocrit 42.7 % (41.0-53.0); Hemoglobin 13.5 g/dL (13.5-17.5); Lymphocytes # (auto) 0.4 10 ^3/uL (0.4-5.4); Lymphocytes % (auto) 2.2 % (10.0-50.0); Mean Corpuscular Hgb Conc. 31.6 g/dL (32.0-36.0); Mean Corpuscular Volume 88.4 fL (80.0-100.0); Monocytes # (auto) 0.8 10 ^3/uL (0-1.3); Monocytes % (auto) 4.6 % (0.0-12.0); Neutrophils # (auto) 15.5 10 ^3/uL (1.6-8.6); Red Blood Cells 4.82 10^6/uL (4.5-5.90); Red Cell Distribution Width 16.7 % (11.8-14.3); White Blood Cell 16.7 10^3/uL (4.4-10.8)
[2023-04-10 08:00] VITALS: PULSE 90; RESP 28; O2SAT 96
[2023-04-10 12:38] VITALS: PULSE 100; RESP 24; O2SAT 95
[2023-04-10] MEDS ORDERED: MORPHINE SULFATE INJ 2 MG/ml SYRG IV PRN (15:00)
[2023-04-10] MEDS ORDERED: ONDANSETRON HCL 4 MG/2 ML VIAL IV PRN (15:00)
[2023-04-10] MEDS ORDERED: NITROGLYCERIN 0.4 MG SL TAB SL PRN (15:00)
[2023-04-10] MEDS ORDERED: CLINIMIX PER PHARMACY 0 ML IV SCH (15:15)
[2023-04-10] MEDS: metroNIDAZOLE 500MG/100ML 100 ML IV SCH (15:27)
[2023-04-10] MEDS: MORPHINE SULFATE INJ 2 MG/ml SYRG IV PRN (15:28)
[2023-04-10] MEDS: PIPERACILLIN-TAZOB 3.375GM 100 ML IV SCH (16:22)
[2023-04-10] MEDS: PANTOPRAZOLE 40mg/50ML NS AE 50 ML IV SCH ×2 (17:00→22:04)
[2023-04-10 18:01] LABS: Magnesium 1.9 mg/dL (1.6-2.6)
[2023-04-10 18:02] LABS: Phosphorus 2.7 mg/dL (2.4-5.1)
[2023-04-10 19:31] VITALS: PULSE 89; RESP 29; O2SAT 94
[2023-04-10] MEDS: AMINO ACID INFUSION IN D10W 1,000 ML IV NR (21:48)
[2023-04-11] VITALS (48 sets, daily range): BP systolic 47–194; BP diastolic 30–84; PULSE 75–103; RESP 13–26; TEMP 98.4–99.2; O2SAT 92–100
[2023-04-11] MEDS ORDERED: DEXTROSE (50%) 50ML SYRG IV SCH
[2023-04-11] MEDS: metroNIDAZOLE 500MG/100ML 100 ML IV SCH (00:14)
[2023-04-11] MEDS: PIPERACILLIN-TAZOB 3.375GM 100 ML IV SCH ×4 (00:14→23:40)
[2023-04-11] MEDS: ACCU-CHEK COMFORT CURVE STRIP VI SCH ×5 (00:31→23:59)
[2023-04-11] MEDS: InsuLIN REG 1unit/0.01ml Soln (100units/ml) SC SCH ×5 (00:34→23:59)
[2023-04-11] MEDS: PANTOPRAZOLE 40mg/50ML NS AE 50 ML IV SCH ×6 (03:24→23:41)
[2023-04-11] MEDS: MORPHINE SULFATE INJ 2 MG/ml SYRG IV PRN (05:50)
[2023-04-11 06:33] LABS: Basophils # (auto) 0 10 ^3/uL (0-0.2); Eosinophils # (auto) 0 10 ^3/uL (0-0.8); Hematocrit 39.8 % (41.0-53.0); Hemoglobin 13.1 g/dL (13.5-17.5); Lymphocytes # (auto) 0.8 10 ^3/uL (0.4-5.4); Lymphocytes % (auto) 5.2 % (10.0-50.0); Mean Corpuscular Hemoglobin 28.2 pg (28.0-32.0); Mean Corpuscular Hgb Conc. 32.9 g/dL (32.0-36.0); Mean Corpuscular Volume 85.8 fL (80.0-100.0); Monocytes # (auto) 0.9 10 ^3/uL (0-1.3); Neutrophils # (auto) 13.8 10 ^3/uL (1.6-8.6); Neutrophils % (auto) 88.8 % (37.0-80.0); Red Blood Cells 4.64 10^6/uL (4.5-5.90); Red Cell Distribution Width 16.5 % (11.8-14.3); White Blood Cell 15.6 10^3/uL (4.4-10.8)
[2023-04-11 06:49] LABS: Alanine Aminotransferase 11 U/L (7-40); Albumin 3.7 g/dL (3.2-4.8); Alkaline Phosphatase 82 U/L (46-116); Anion Gap 11 (5-15); Aspartate Aminotransferase 26 U/L (13-40); BUN/Creatinine Ratio 32.7 (10.0-20.0); Blood Urea Nitrogen 32 mg/dL (9-23); Carbon Dioxide 24 mmol/L (20-30); Chloride 112 mmol/L (98-107); Glucose 120 mg/dL (74-106); Magnesium 1.9 mg/dL (1.6-2.6); Potassium 3.1 mmol/L (3.5-5.1); Sodium 147 mmol/L (136-145)
[2023-04-11 06:50] LABS: Bilirubin, Total 1.1 mg/dL (0.2-1.0); Phosphorus 1.8 mg/dL (2.4-5.1)
[2023-04-11] MEDS ORDERED: POTASSIUM CHL 20MEQ/100ML 100 ML IV ONE (09:30)
[2023-04-11] MEDS: POTASSIUM CHLORIDE 40 MEQ in D5W 5% 1,000 ML IV SCH ×2 (10:37→19:22)
[2023-04-11] MEDS ORDERED: fentaNYL CITRATE 100 MCG/2 ML VL ONE ×2 (10:50→13:18)
[2023-04-11] MEDS ORDERED: ePHEDrine SULFATE 50 MG/ML AMP ONE (10:51)
[2023-04-11] MEDS ORDERED: ROCURONIUM 10MG/ML 10ML VIAL IV ONE (10:51)
[2023-04-11] MEDS ORDERED: LIDOCAINE 2% (LOCAL ANESTH.) PF 5ml SDV ONE (10:51)
[2023-04-11] MEDS ORDERED: PHENYLEPHRINE HCL 10 MG/ML VL ONE (10:51)
[2023-04-11] MEDS ORDERED: ETOMIDATE (2MG/ML) 20ML VIAL IV ONE (10:51)
[2023-04-11] MEDS ORDERED: MIDAZOLAM HCL 2MG/2ML 2ml VIAL (1mg/ml) ONE ×2 (11:43→13:29)
[2023-04-11] MEDS ORDERED: HYDROmorphone HCL 2 MG/ML VL/or syr ONE (11:43)
[2023-04-11] MEDS ORDERED: POTASSIUM PHOSPHATE 22 MEQ in SODIUM CHL 0.9% 100 ML IV ONE (12:00)
[2023-04-11] MEDS ORDERED: ACCU-CHEK COMFORT CURVE STRIP VI ONE (14:00)
[2023-04-11] MEDS ORDERED: HYDROmorphone HCL 2 MG/ML VL/or syr IV PRN ×2 (14:00)
[2023-04-11] MEDS: MIDAZOLAM DRIP 50 mg/50mL 50 ML IV SCH (14:30)
[2023-04-11 14:40] LABS: Base Excess -5.2 mmol/L (-2.0-2.0)
[2023-04-11] MEDS ORDERED: fentaNYL CITRATE 100 MCG/2 ML VL IV PRN (14:45)
[2023-04-11] MEDS: fentaNYL Drip 2500mCg/250mlNS 250 ML IV SCH (15:05)
[2023-04-11] MEDS ORDERED: hydrALAZINE HCL 20 MG/ML VL IV PRN (18:30)
[2023-04-11] MEDS: AMINO ACID INFUSION IN D10W 1,000 ML IV NR (23:40)
[2023-04-11] MEDS: NOREPINEPHRINE 8 MG/250ML KIT 250 ML IV SCH (23:41)
[2023-04-12] VITALS (103 sets, daily range): BP systolic 44–163; BP diastolic 33–84; PULSE 57–79; RESP 13–17; TEMP 98.8–99.3; O2SAT 96–100
[2023-04-12] MEDS: POTASSIUM CHLORIDE 40 MEQ in D5W 5% 1,000 ML IV SCH ×2 (04:29→16:56)
[2023-04-12 05:10] LABS: Alanine Aminotransferase 14 U/L (7-40); Albumin 2.9 g/dL (3.2-4.8); Alkaline Phosphatase 59 U/L (46-116); Anion Gap 8 (5-15); Aspartate Aminotransferase 25 U/L (13-40); BUN/Creatinine Ratio 26.3 (10.0-20.0); Blood Urea Nitrogen 21 mg/dL (9-23); Calcium 8.1 mg/dL (8.7-10.4); Carbon Dioxide 20 mmol/L (20-30); Chloride 110 mmol/L (98-107); Glucose 118 mg/dL (74-106); Magnesium 1.6 mg/dL (1.6-2.6); Potassium 3.9 mmol/L (3.5-5.1); Sodium 138 mmol/L (136-145)
[2023-04-12 05:11] LABS: Bilirubin, Total 1.3 mg/dL (0.2-1.0); Phosphorus 1.6 mg/dL (2.4-5.1); Total Protein 4.9 g/dL (5.7-8.2)
[2023-04-12] MEDS ORDERED: VANCOMYCIN 750mg/250ml 250 ML IV SCH (05:30)
[2023-04-12] MEDS: InsuLIN REG 1unit/0.01ml Soln (100units/ml) SC SCH ×3 (06:00→18:00)
[2023-04-12] MEDS: ACCU-CHEK COMFORT CURVE STRIP VI SCH ×3 (06:08→18:35)
[2023-04-12] MEDS: PIPERACILLIN-TAZOB 3.375GM 100 ML IV SCH ×2 (06:09→16:58)
[2023-04-12] MEDS: PANTOPRAZOLE 40mg/50ML NS AE 50 ML IV SCH ×4 (06:09→21:23)
[2023-04-12 07:49] LABS: Base Excess -12.7 mmol/L (-2.0-2.0)
[2023-04-12 08:32] LABS: Basophils # (auto) 0 10 ^3/uL (0-0.2); Basophils % (auto) 0.1 % (0.0-2.0); Eosinophils # (auto) 0 10 ^3/uL (0-0.8); Eosinophils % (auto) 0.2 % (0.0-7.0); Hematocrit 32.3 % (41.0-53.0); Hemoglobin 10.8 g/dL (13.5-17.5); Lymphocytes # (auto) 0.7 10 ^3/uL (0.4-5.4); Lymphocytes % (auto) 8.3 % (10.0-50.0); Mean Corpuscular Hemoglobin 28.6 pg (28.0-32.0); Mean Corpuscular Hgb Conc. 33.4 g/dL (32.0-36.0); Mean Corpuscular Volume 85.6 fL (80.0-100.0); Monocytes # (auto) 0.4 10 ^3/uL (0-1.3); Monocytes % (auto) 4.1 % (0.0-12.0); Neutrophils # (auto) 7.6 10 ^3/uL (1.6-8.6); Neutrophils % (auto) 87.3 % (37.0-80.0); Red Blood Cells 3.78 10^6/uL (4.5-5.90); Red Cell Distribution Width 16.4 % (11.8-14.3); White Blood Cell 8.7 10^3/uL (4.4-10.8)
[2023-04-12] MEDS: MIDAZOLAM DRIP 50 mg/50mL 50 ML IV SCH (16:57)
[2023-04-12] MEDS ORDERED: SODIUM PHOSPHATES 40 MEQ in D5W 5% 250 ML IV ONE (17:00)
[2023-04-12] MEDS ORDERED: [UNRECOGNIZED DRUG - OTHER] IV SCH ×2 (17:30)
[2023-04-12] MEDS ORDERED: SODIUM BICARBONATE IV SCH ×2 (17:30)
[2023-04-12] MEDS ORDERED: SODIUM BICARBONATE 50ML VIAL 100 ML in SOD CHL 0.45% 1,000 ML IV SCH (17:45)
[2023-04-12] MEDS: fentaNYL Drip 2500mCg/250mlNS 250 ML IV SCH (18:34)
[2023-04-12] MEDS: NOREPINEPHRINE 8 MG/250ML KIT 250 ML IV SCH (19:45)
[2023-04-12] MEDS ORDERED: VANCOMYCIN PER PHARMACY 0 MG IV SCH (19:45)
[2023-04-12] MEDS ORDERED: VANCOMYCIN 1GM/250ML 250 ML IV ONE (20:00)
[2023-04-12] MEDS: AMINO ACID INFUSION IN D10W 1,000 ML IV NR (21:22)
[2023-04-12] MEDS: MUPIROCIN 2% OINT 15gm or 22gm FOR MRSA NARES EACHNOSTRI SCH (21:27)
[2023-04-13] VITALS (106 sets, daily range): BP systolic 48–169; BP diastolic 41–123; PULSE 54–90; RESP 13–26; TEMP 98.4–100.2; O2SAT 94–100
[2023-04-13] MEDS: InsuLIN REG 1unit/0.01ml Soln (100units/ml) SC SCH ×5 (00:53→23:27)
[2023-04-13] MEDS: ACCU-CHEK COMFORT CURVE STRIP VI SCH ×5 (00:53→23:23)
[2023-04-13] MEDS: PANTOPRAZOLE 40mg/50ML NS AE 50 ML IV SCH ×2 (00:55→05:00)
[2023-04-13] MEDS: PIPERACILLIN-TAZOB 3.375GM 100 ML IV SCH ×4 (00:55→23:23)
[2023-04-13] MEDS: MIDAZOLAM DRIP 50 mg/50mL 50 ML IV SCH (03:44)
[2023-04-13 04:43] LABS: Albumin 2.4 g/dL (3.2-4.8); Alkaline Phosphatase 52 U/L (46-116); Anion Gap 7 (5-15); Aspartate Aminotransferase 14 U/L (13-40); BUN/Creatinine Ratio 26.5 (10.0-20.0); Bilirubin, Total 0.8 mg/dL (0.2-1.0); Blood Urea Nitrogen 13 mg/dL (9-23); Calcium 6.8 mg/dL (8.7-10.4); Carbon Dioxide 20 mmol/L (20-30); Chloride 111 mmol/L (98-107); Glucose 98 mg/dL (74-106); Magnesium 1.3 mg/dL (1.6-2.6); Phosphorus 2.7 mg/dL (2.4-5.1); Potassium 3.3 mmol/L (3.5-5.1); Sodium 138 mmol/L (136-145); Total Protein 4.2 g/dL (5.7-8.2)
[2023-04-13 04:44] LABS: Alanine Aminotransferase < 9 U/L (7-40)
[2023-04-13] MEDS ORDERED: VANCOMYCIN 750mg/250ml 250 ML IV SCH (05:30)
[2023-04-13] MEDS: MAGNESIUM SULFATE 1GM/100ML 100 ML IV SCH ×2 (06:52→09:12)
[2023-04-13 08:21] LABS: Base Excess -2.9 mmol/L (-2.0-2.0)
[2023-04-13] MEDS: MUPIROCIN 2% OINT 15gm or 22gm FOR MRSA NARES EACHNOSTRI SCH ×2 (09:24→21:33)
[2023-04-13] MEDS ORDERED: DAPTOmycin 0 MG in SODIUM CHL 0.9% 50 ML IV SCH (10:00)
[2023-04-13] MEDS: POTASSIUM CHL 20MEQ/100ML 100 ML IV SCH ×2 (10:17→13:31)
[2023-04-13] MEDS: MICAFUNGIN SODIUM 100 MG in SODIUM CHL 0.9% 100 ML IV SCH ×2 (10:17→10:56)
[2023-04-13] MEDS ORDERED: CALCIUM GLUC 1,000mg/50ml-NS 50 ML IV ONE (10:30)
[2023-04-13] MEDS: fentaNYL Drip 2500mCg/250mlNS 250 ML IV SCH (13:32)
[2023-04-13] MEDS: NOREPINEPHRINE 8 MG/250ML KIT 250 ML IV SCH (19:45)
[2023-04-13] MEDS: AMINO ACID INFUSION IN D10W 1,000 ML IV NR (19:56)
[2023-04-13] MEDS: VANCOMYCIN 750mg/250ml 250 ML IV SCH (21:00)
[2023-04-13] MEDS: PANTOPRAZOLE 40 MG/10 ML VIAL INJ IV SCH (21:32)
[2023-04-14] VITALS (104 sets, daily range): BP systolic 61–180; BP diastolic 41–122; PULSE 68–100; RESP 15–32; TEMP 97.9–100; O2SAT 88–100
[2023-04-14 04:40] LABS: Alanine Aminotransferase 11 U/L (7-40); Albumin 2.9 g/dL (3.2-4.8); Alkaline Phosphatase 98 U/L (46-116); Anion Gap 6 (5-15); Aspartate Aminotransferase 19 U/L (13-40); BUN/Creatinine Ratio 22.4 (10.0-20.0); Blood Urea Nitrogen 11 mg/dL (9-23); Calcium 8.2 mg/dL (8.7-10.4); Carbon Dioxide 23 mmol/L (20-30); Chloride 108 mmol/L (98-107); Glucose 110 mg/dL (74-106); Magnesium 1.7 mg/dL (1.6-2.6); Potassium 3.7 mmol/L (3.5-5.1); Sodium 137 mmol/L (136-145)
[2023-04-14 04:41] LABS: Phosphorus 1.9 mg/dL (2.4-5.1)
[2023-04-14] MEDS: InsuLIN REG 1unit/0.01ml Soln (100units/ml) SC SCH ×3 (06:00→18:00)
[2023-04-14] MEDS: ACCU-CHEK COMFORT CURVE STRIP VI SCH ×3 (06:21→18:17)
[2023-04-14] MEDS: PIPERACILLIN-TAZOB 3.375GM 100 ML IV SCH ×3 (07:56→23:47)
[2023-04-14] MEDS: hydrALAZINE HCL 20 MG/ML VL IV PRN (07:57)
[2023-04-14 08:09] LABS: Basophils # (auto) 0 10 ^3/uL (0-0.2); Basophils % (auto) 0.2 % (0.0-2.0); Eosinophils # (auto) 0 10 ^3/uL (0-0.8); Eosinophils % (auto) 0.3 % (0.0-7.0); Hematocrit 34.2 % (41.0-53.0); Hemoglobin 11.5 g/dL (13.5-17.5); Lymphocytes # (auto) 0.7 10 ^3/uL (0.4-5.4); Lymphocytes % (auto) 5.8 % (10.0-50.0); Mean Corpuscular Hemoglobin 28.7 pg (28.0-32.0); Mean Corpuscular Hgb Conc. 33.5 g/dL (32.0-36.0); Mean Corpuscular Volume 85.6 fL (80.0-100.0); Monocytes # (auto) 0.8 10 ^3/uL (0-1.3); Monocytes % (auto) 7.1 % (0.0-12.0); Neutrophils # (auto) 9.9 10 ^3/uL (1.6-8.6); Neutrophils % (auto) 86.6 % (37.0-80.0); Nucleated Red Blood Cells % 0.1 %; White Blood Cell 11.4 10^3/uL (4.4-10.8)
[2023-04-14 08:28] LABS: Base Excess -0.4 mmol/L (-2.0-2.0)
[2023-04-14] MEDS: PANTOPRAZOLE 40 MG/10 ML VIAL INJ IV SCH ×2 (09:55→21:07)
[2023-04-14] MEDS: MICAFUNGIN SODIUM 100 MG in SODIUM CHL 0.9% 100 ML IV SCH (09:55)
[2023-04-14] MEDS: MUPIROCIN 2% OINT 15gm or 22gm FOR MRSA NARES EACHNOSTRI SCH (10:00)
[2023-04-14] MEDS: VANCOMYCIN 750mg/250ml 250 ML IV SCH (12:44)
[2023-04-14] MEDS: fentaNYL Drip 2500mCg/250mlNS 250 ML IV SCH (14:00)
[2023-04-14] MEDS: MIDAZOLAM DRIP 50 mg/50mL 50 ML IV SCH (14:00)
[2023-04-14 15:07] LABS: Base Excess 2.5 mmol/L (-2.0-2.0)
[2023-04-14] MEDS ORDERED: EPINEPHrine HCL 0.5 ML NEB ONE (15:33)
[2023-04-14] MEDS ORDERED: FUROSEMIDE 40 MG/4 ML VIAL IV ONE (15:45)
[2023-04-14] MEDS ORDERED: POTASSIUM PHOSPHATE 22 MEQ in SODIUM CHL 0.9% 100 ML IV ONE (15:45)
[2023-04-14] MEDS ORDERED: FUROSEMIDE 40 MG/4 ML VIAL ONE (15:45)
[2023-04-14] MEDS ORDERED: methylPREDNISolone SOD SUCC 125 MG/2 ML VL IV ONE (16:00)
[2023-04-14] MEDS ORDERED: methylPREDNISolone SOD SUCC 125 MG/2 ML VL ONE (16:04)
[2023-04-14] MEDS ORDERED: EPINEPHrine HCL 0.5 ML NEB NEB ONE (17:00)
[2023-04-14] MEDS: NOREPINEPHRINE 8 MG/250ML KIT 250 ML IV SCH (19:45)
[2023-04-14] MEDS: AMINO ACID INFUSION IN D10W 1,000 ML IV NR (20:43)
[2023-04-14] MEDS: methylPREDNISolone SOD SUCC 125 MG/2 ML VL IV SCH (21:08)
[2023-04-15] VITALS (74 sets, daily range): BP systolic 75–168; BP diastolic 44–96; PULSE 53–91; RESP 16–35; TEMP 96.8–98.6; O2SAT 91–100
[2023-04-15] MEDS: MORPHINE SULFATE INJ 2 MG/ml SYRG IV PRN ×4 (01:05→22:16)
[2023-04-15] MEDS: VANCOMYCIN 750mg/250ml 250 ML IV SCH ×3 (01:22→23:46)
[2023-04-15] MEDS: methylPREDNISolone SOD SUCC 125 MG/2 ML VL IV SCH ×4 (01:23→17:35)
[2023-04-15] MEDS: ACCU-CHEK COMFORT CURVE STRIP VI SCH ×4 (01:30→17:35)
[2023-04-15] MEDS: InsuLIN REG 1unit/0.01ml Soln (100units/ml) SC SCH ×4 (01:33→17:38)
[2023-04-15] MEDS: MUPIROCIN 2% OINT 15gm or 22gm FOR MRSA NARES EACHNOSTRI SCH ×3 (01:35→21:31)
[2023-04-15 04:16] LABS: Potassium 3.3 mmol/L (3.5-5.1)
[2023-04-15 04:17] LABS: Calcium 8.2 mg/dL (8.7-10.4)
[2023-04-15 04:22] LABS: Albumin 3.1 g/dL (3.2-4.8); BUN/Creatinine Ratio 20.7 (10.0-20.0); Magnesium 1.8 mg/dL (1.6-2.6)
[2023-04-15 04:24] LABS: Phosphorus 3.6 mg/dL (2.4-5.1)
[2023-04-15] MEDS: PANTOPRAZOLE 40 MG/10 ML VIAL INJ IV SCH ×2 (08:35→21:19)
[2023-04-15] MEDS: PIPERACILLIN-TAZOB 3.375GM 100 ML IV SCH ×2 (08:36→15:20)
[2023-04-15] MEDS: MICAFUNGIN SODIUM 100 MG in SODIUM CHL 0.9% 100 ML IV SCH (10:00)
[2023-04-15] MEDS: fentaNYL Drip 2500mCg/250mlNS 250 ML IV SCH (10:37)
[2023-04-15] MEDS: MIDAZOLAM DRIP 50 mg/50mL 50 ML IV SCH (10:37)
[2023-04-15] MEDS ORDERED: POTASSIUM CHL 20MEQ/100ML 200 ML IV ONE (11:13)
[2023-04-15] MEDS: POTASSIUM CHL 20MEQ/100ML 100 ML IV SCH ×2 (11:30→13:15)
[2023-04-15] MEDS: MAGNESIUM SULFATE 1GM/100ML 100 ML IV SCH ×2 (12:00→13:00)
[2023-04-15] MEDS: NOREPINEPHRINE 8 MG/250ML KIT 250 ML IV SCH (17:40)
[2023-04-15] MEDS: AMINO ACID INFUSION IN D10W 1,000 ML IV NR (21:19)
[2023-04-16] VITALS (48 sets, daily range): BP systolic 132–172; BP diastolic 51–76; PULSE 65–81; RESP 15–24; TEMP 98.1–99.2; O2SAT 92–97
[2023-04-16] MEDS: methylPREDNISolone SOD SUCC 125 MG/2 ML VL IV SCH ×4 (00:43→17:03)
[2023-04-16] MEDS: PIPERACILLIN-TAZOB 3.375GM 100 ML IV SCH ×3 (00:43→14:44)
[2023-04-16] MEDS: ACCU-CHEK COMFORT CURVE STRIP VI SCH ×4 (00:49→17:02)
[2023-04-16] MEDS: InsuLIN REG 1unit/0.01ml Soln (100units/ml) SC SCH ×4 (00:51→17:02)
[2023-04-16 04:32] LABS: Anion Gap 7 (5-15); Carbon Dioxide 25 mmol/L (20-30); Chloride 107 mmol/L (98-107); Potassium 3.4 mmol/L (3.5-5.1); Sodium 139 mmol/L (136-145)
[2023-04-16 04:34] LABS: Calcium 8.5 mg/dL (8.7-10.4)
[2023-04-16 04:38] LABS: Blood Urea Nitrogen 17 mg/dL (9-23); Glucose 155 mg/dL (74-106)
[2023-04-16 04:39] LABS: Magnesium 2.2 mg/dL (1.6-2.6)
[2023-04-16 04:40] LABS: Phosphorus 2.3 mg/dL (2.4-5.1)
[2023-04-16] MEDS: MUPIROCIN 2% OINT 15gm or 22gm FOR MRSA NARES EACHNOSTRI SCH ×2 (08:03→21:00)
[2023-04-16] MEDS: PANTOPRAZOLE 40 MG/10 ML VIAL INJ IV SCH ×2 (08:03→20:47)
[2023-04-16] MEDS: MORPHINE SULFATE INJ 2 MG/ml SYRG IV PRN (08:04)
[2023-04-16] MEDS: MICAFUNGIN SODIUM 100 MG in SODIUM CHL 0.9% 100 ML IV SCH (10:14)
[2023-04-16] MEDS: MIDAZOLAM DRIP 50 mg/50mL 50 ML IV SCH (11:10)
[2023-04-16] MEDS: fentaNYL Drip 2500mCg/250mlNS 250 ML IV SCH (11:10)
[2023-04-16] MEDS: VANCOMYCIN 750mg/250ml 250 ML IV SCH (12:00)
[2023-04-16] MEDS: hydrALAZINE HCL 20 MG/ML VL IV PRN (17:02)
[2023-04-16] MEDS: NOREPINEPHRINE 8 MG/250ML KIT 250 ML IV SCH (17:03)
[2023-04-16] MEDS: AMINO ACID INFUSION IN D10W 1,000 ML IV NR (20:48)
[2023-04-17] VITALS (7 sets, daily range): BP systolic 115–160; BP diastolic 55–74; PULSE 59–71; RESP 18–20; TEMP 97.9–98.5; O2SAT 92–96
[2023-04-17] MEDS: VANCOMYCIN 750mg/250ml 250 ML IV SCH ×2 (00:37→12:23)
[2023-04-17] MEDS: PIPERACILLIN-TAZOB 3.375GM 100 ML IV SCH ×4 (00:43→22:18)
[2023-04-17] MEDS: methylPREDNISolone SOD SUCC 125 MG/2 ML VL IV SCH ×5 (00:57→23:04)
[2023-04-17] MEDS: ACCU-CHEK COMFORT CURVE STRIP VI SCH ×5 (01:11→23:05)
[2023-04-17] MEDS: InsuLIN REG 1unit/0.01ml Soln (100units/ml) SC SCH ×5 (01:14→23:05)
[2023-04-17] MEDS: MORPHINE SULFATE INJ 2 MG/ml SYRG IV PRN (01:26)
[2023-04-17 08:18] LABS: Alanine Aminotransferase 27 U/L (7-40); Albumin 3.1 g/dL (3.2-4.8); Alkaline Phosphatase 124 U/L (46-116); Anion Gap 7 (5-15); Aspartate Aminotransferase 33 U/L (13-40); BUN/Creatinine Ratio 35.7 (10.0-20.0); Bilirubin, Total 0.6 mg/dL (0.2-1.0); Blood Urea Nitrogen 20 mg/dL (9-23); Calcium 8.5 mg/dL (8.5-10.1); Carbon Dioxide 26 mmol/L (20-30); Chloride 108 mmol/L (98-107); Glucose 142 mg/dL (74-106); Phosphorus 2.4 mg/dL (2.4-5.1); Potassium 3.2 mmol/L (3.5-5.1); Sodium 141 mmol/L (136-145); Total Protein 5.3 g/dL (5.7-8.2)
[2023-04-17 08:39] LABS: Magnesium 2.1 mg/dL (1.6-2.6)
[2023-04-17] MEDS: MICAFUNGIN SODIUM 100 MG in SODIUM CHL 0.9% 100 ML IV SCH (09:32)
[2023-04-17] MEDS: MUPIROCIN 2% OINT 15gm or 22gm FOR MRSA NARES EACHNOSTRI SCH (09:46)
[2023-04-17] MEDS: MAGNESIUM SULFATE 1GM/100ML 100 ML IV SCH ×2 (10:55→12:02)
[2023-04-17] MEDS: PANTOPRAZOLE 40 MG/10 ML VIAL INJ IV SCH ×2 (10:56→22:16)
[2023-04-17] MEDS ORDERED: POTASSIUM PHOSPHATE 44 MEQ in D5W 5% 250 ML IV ONE (14:00)
[2023-04-17] MEDS: hydrALAZINE HCL 20 MG/ML VL IV PRN (17:33)
[2023-04-17] MEDS: AMINO ACID INFUSION IN D10W 1,000 ML IV NR (22:18)
[2023-04-18] VITALS (8 sets, daily range): BP systolic 131–157; BP diastolic 63–76; PULSE 52–66; RESP 16–20; TEMP 97.7–98.7; O2SAT 93–99
[2023-04-18] MEDS: VANCOMYCIN 750mg/250ml 250 ML IV SCH ×2 (00:05→12:26)
[2023-04-18] MEDS: ACCU-CHEK COMFORT CURVE STRIP VI SCH ×3 (06:23→18:39)
[2023-04-18] MEDS: methylPREDNISolone SOD SUCC 125 MG/2 ML VL IV SCH ×2 (06:23→12:25)
[2023-04-18] MEDS: InsuLIN REG 1unit/0.01ml Soln (100units/ml) SC SCH ×3 (06:30→18:00)
[2023-04-18 07:04] LABS: Basophils # (auto) 0 10 ^3/uL (0-0.2); Basophils % (auto) 0.1 % (0.0-2.0); Eosinophils # (auto) 0 10 ^3/uL (0-0.8); Hematocrit 32.2 % (41.0-53.0); Lymphocytes # (auto) 0.4 10 ^3/uL (0.4-5.4); Mean Corpuscular Hemoglobin 29.3 pg (28.0-32.0); Mean Corpuscular Hgb Conc. 34.3 g/dL (32.0-36.0); Mean Corpuscular Volume 85.3 fL (80.0-100.0); Monocytes # (auto) 0.7 10 ^3/uL (0-1.3); Monocytes % (auto) 6.2 % (0.0-12.0); Neutrophils # (auto) 10.6 10 ^3/uL (1.6-8.6); Neutrophils % (auto) 90.7 % (37.0-80.0); Red Blood Cells 3.77 10^6/uL (4.5-5.90); Red Cell Distribution Width 15.4 % (11.8-14.3); White Blood Cell 11.6 10^3/uL (4.4-10.8)
[2023-04-18 07:57] LABS: Alanine Aminotransferase 28 U/L (7-40); Albumin 2.7 g/dL (3.2-4.8); Alkaline Phosphatase 124 U/L (46-116); Anion Gap 5 (5-15); Aspartate Aminotransferase 41 U/L (13-40); BUN/Creatinine Ratio 25.8 (10.0-20.0); Bilirubin, Total 0.6 mg/dL (0.2-1.0); Blood Urea Nitrogen 16 mg/dL (9-23); Calcium 7.9 mg/dL (8.7-10.4); Carbon Dioxide 26 mmol/L (20-30); Chloride 108 mmol/L (98-107); Glucose 155 mg/dL (74-106); Magnesium 2.3 mg/dL (1.6-2.6); Phosphorus 3.1 mg/dL (2.4-5.1); Potassium 3.2 mmol/L (3.5-5.1); Sodium 139 mmol/L (136-145); Total Protein 4.7 g/dL (5.7-8.2)
[2023-04-18] MEDS: PIPERACILLIN-TAZOB 3.375GM 100 ML IV SCH (08:57)
[2023-04-18] MEDS: PANTOPRAZOLE 40 MG/10 ML VIAL INJ IV SCH (10:19)
[2023-04-18] MEDS: MICAFUNGIN SODIUM 100 MG in SODIUM CHL 0.9% 100 ML IV SCH (10:25)
[2023-04-18] MEDS: POTASSIUM CHL 20MEQ/100ML 100 ML IV SCH ×2 (16:54→18:38)
[2023-04-18] MEDS: methylPREDNISolone SOD SUCC 40 MG/ML VL IV SCH (21:14)
[2023-04-19 05:09] VITALS: BP 148/73; PULSE 59; RESP 21; TEMP 98.6; O2SAT 93
[2023-04-19 05:26] LABS: Potassium 3.5 mmol/L (3.5-5.1)
[2023-04-19 05:27] LABS: Calcium 8.4 mg/dL (8.5-10.1)
[2023-04-19 05:32] LABS: BUN/Creatinine Ratio 30.6 (10.0-20.0)
[2023-04-19 05:33] LABS: Albumin 3.1 g/dL (3.2-4.8)
[2023-04-19 05:34] LABS: Phosphorus 2.7 mg/dL (2.4-5.1)
[2023-04-19 05:49] LABS: Magnesium 2.3 mg/dL (1.6-2.6)
[2023-04-19] MEDS: InsuLIN REG 1unit/0.01ml Soln (100units/ml) SC SCH ×4 (06:50→18:00)
[2023-04-19] MEDS: ACCU-CHEK COMFORT CURVE STRIP VI SCH ×4 (07:48→18:00)
[2023-04-19 08:00] VITALS: BP 148/79; PULSE 65; PULSE 68; RESP 18; TEMP 98.1; O2SAT 90
[2023-04-19 09:00] VITALS: BP 148/79; PULSE 68; RESP 18; TEMP 98.1; O2SAT 90
[2023-04-19] MEDS ORDERED: AMOX500T86 PO (10:33)
[2023-04-19] MEDS ORDERED: BACIOIN (10:37)
[2023-04-19] MEDS: methylPREDNISolone SOD SUCC 40 MG/ML VL IV SCH (10:54)
[2023-04-19 13:00] VITALS: BP 124/69; PULSE 71; RESP 18; TEMP 99.1; O2SAT 93
[2023-04-19 16:48] VITALS: BP 142/69; PULSE 65; RESP 18; TEMP 98.9; O2SAT 96
[2023-04-19 17:03] VITALS: BP 142/69; PULSE 65; RESP 18; TEMP 98.9; O2SAT 96
== END 2023-04-19 19:30 | disposition home or self-care (01) | DRG 853 ==
LOC: ER 01:34 → EDBD 01:34 → TELE 15:07 → DOU IN ICU 23:25 → ICU WEST 04-11 17:48 → TELE-EAST 04-16 22:20
PROVIDERS: ADMIT Internal Medicine; ATTEND Internal Medicine
PROC: 0D9670Z Drainage of Stomach with Drainage Device, Via Natural or Artificial Opening (ICD-10-PCS; 2023-04-10)
PROC: B54MZZA Ultrasonography of Right Upper Extremity Veins, Guidance (ICD-10-PCS; 2023-04-11)
PROC: 5A1945Z Respiratory Ventilation, 24-96 Consecutive Hours (ICD-10-PCS; 2023-04-11)
PROC: 0BH17EZ Insertion of Endotracheal Airway into Trachea, Via Natural or Artificial Opening (ICD-10-PCS; 2023-04-11)
PROC: 05HB33Z Insertion of Infusion Device into Right Basilic Vein, Percutaneous Approach (ICD-10-PCS; 2023-04-11)
PROC: 0W9G00Z Drainage of Peritoneal Cavity with Drainage Device, Open Approach (ICD-10-PCS; principal; 2023-04-11 12:05)
PROC: 5A09357 Assistance with Respiratory Ventilation, Less than 24 Consecutive Hours, Continuous Positive Airway Pressure (ICD-10-PCS; 2023-04-14)
DX: A41.9 Sepsis, unspecified organism (principal); J96.21 Acute and chronic respiratory failure with hypoxia; K85.90 Acute pancreatitis without necrosis or infection, unspecified; K65.9 Peritonitis, unspecified; K65.1 Peritoneal abscess; E87.20 Acidosis, unspecified; N39.0 Urinary tract infection, site not specified; R64 Cachexia; Z68.1 Body mass index [BMI] 19.9 or less, adult; G20.A1 Parkinson's disease without dyskinesia, without mention of fluctuations; G30.9 Alzheimer's disease, unspecified; K56.41 Fecal impaction; F02.80 Dementia in other diseases classified elsewhere, unspecified severity, without behavioral disturbance, psychotic disturbance, mood disturbance, and anxiety; E87.70 Fluid overload, unspecified; N40.0 Benign prostatic hyperplasia without lower urinary tract symptoms; Z74.01 Bed confinement status; Z79.899 Other long term (current) drug therapy; Z80.0 Family history of malignant neoplasm of digestive organs
CPT/HCPCS: 36415; 36600; 71045; 71260; 74176; 74177; 76705; 80048; 80053; 80069; 80202; 81001; 82040; 82805; 82962; 83605; 83690; 83735; 83880; 84100; 84484; 85025; 85610; 85730; 86850; 86900; 86901; 87040; 87070; 87075; 87081; 87205; 92610; 93005; 94002; 94003; 94660; C9113; G0378; J1815; J2001; J2248; J2250; J2405; J2543; J3480; J3490; J7060; P9047

== ENCOUNTER 2023-07-20 01:37 | Inpatient (IN) | payer OTHER, MEDICAID ==
[~2023-07-20] VITALS: Ht 167.6 cm; Wt 66.7 kg
[~2023-07-20 01:37] MED LIST changes: +AMOX500T86 PO; +BACIOIN; -DOXY-286 PO; -METR-344 PO
[2023-07-20 02:11] VITALS: PULSE 101; RESP 30; O2SAT 92
[2023-07-20 02:55] LABS: Basophils # (auto) 0 10 ^3/uL (0-0.2); Eosinophils # (auto) 0 10 ^3/uL (0-0.8); Hematocrit 44.5 % (41.0-53.0); Lymphocytes # (auto) 0.3 10 ^3/uL (0.4-5.4); Lymphocytes % (auto) 1.8 % (10.0-50.0); Mean Corpuscular Hemoglobin 27.3 pg (28.0-32.0); Mean Corpuscular Hgb Conc. 31.5 g/dL (32.0-36.0); Mean Corpuscular Volume 86.8 fL (80.0-100.0); Monocytes # (auto) 1.1 10 ^3/uL (0-1.3); Monocytes % (auto) 6.2 % (0.0-12.0); Neutrophils # (auto) 16.4 10 ^3/uL (1.6-8.6); Red Blood Cells 5.13 10^6/uL (4.5-5.90); Red Cell Distribution Width 16.8 % (11.8-14.3); White Blood Cell 17.8 10^3/uL (4.4-10.8)
[2023-07-20] MEDS: SODIUM CHLORIDE 0.9% 1,000 ML IVB ONE (02:56)
[2023-07-20] MEDS: ONDANSETRON HCL 4 MG/2 ML VIAL IV ONE ×2 (02:57→09:00)
[2023-07-20] MEDS: HYDROmorphone HCL 2 MG/ML VL/or syr IV ONE ×2 (02:57→09:00)
[2023-07-20 03:05] LABS: INR 1.07 (0.9-1.15); Prothrombin Time 11.2 sec (9.3-11.8)
[2023-07-20 03:10] LABS: Alanine Aminotransferase 29 U/L (7-40); Albumin 3.8 g/dL (3.2-4.8); Alkaline Phosphatase 142 U/L (46-116); Anion Gap 17 (5-15); Aspartate Aminotransferase 32 U/L (13-40); BUN/Creatinine Ratio 16.9 (10.0-20.0); Blood Urea Nitrogen 20 mg/dL (9-23); Calcium 9.2 mg/dL (8.7-10.4); Carbon Dioxide 19 mmol/L (20-30); Chloride 107 mmol/L (98-107); Glucose 317 mg/dL (74-106); Lipase 135 U/L (12-53); Magnesium 2.2 mg/dL (1.6-2.6); Potassium 3.6 mmol/L (3.5-5.1); Sodium 143 mmol/L (136-145)
[2023-07-20 03:11] LABS: Bilirubin, Total 0.6 mg/dL (0.2-1.0); Total Protein 6.8 g/dL (5.7-8.2)
[2023-07-20 03:14] LABS: Lactic Acid w/Reflex 10.8 mmol/L (0.4-2.0)
[2023-07-20] MEDS: IOHEXOL 350 MG/ML 100ML IJ ONE (03:20)
[2023-07-20] MEDS: SODIUM CHLORIDE 0.9% 1,650 ML IV ONE (03:48)
[2023-07-20] MEDS: VANCOMYCIN 1GM/200ML 200 ML IV SCH (03:50)
[2023-07-20] MEDS: PIPERACILLIN-TAZOB 3.375GM 100 ML IV SCH ×2 (03:50→15:00)
[2023-07-20] MEDS ORDERED: PIPERACILLIN-TAZOB 3.375GM 100 ML IV SCH (06:00)
[2023-07-20] MEDS: SUCCINYLCHOLINE CHLORIDE 20 MG/ML 10ML VIAL IV ONE (07:11)
[2023-07-20] MEDS ORDERED: PROPOFOL 10 MG/ML 20 ML IV ONE (07:15)
[2023-07-20] MEDS ORDERED: fentaNYL CITRATE 100 MCG/2 ML VL ONE (07:16)
[2023-07-20] MEDS ORDERED: ePHEDrine SULFATE 50 MG/ML AMP ONE (07:30)
[2023-07-20] MEDS ORDERED: PHENYLEPHRINE HCL 10 MG/ML VL ONE (07:41)
[2023-07-20] MEDS ORDERED: SUGAMMADEX 200mg/2ml Vial (100MG/ML) IV ONE (08:31)
[2023-07-20] MEDS ORDERED: MEPERIDINE HCL (25 MG/ML) 1ML VIAL ONE (08:40)
[2023-07-20 08:52] VITALS: RESP 14; O2SAT 94
[2023-07-20] MEDS: PANTOPRAZOLE 40 MG/10 ML VIAL INJ IV ONE (09:00)
[2023-07-20] MEDS: cefTRIAXone 1GM/50ML D5W 50 ML IV ONE (09:00)
[2023-07-20] MEDS ORDERED: ONDANSETRON HCL 4 MG/2 ML VIAL IV PRN ×2 (09:15→11:45)
[2023-07-20] MEDS ORDERED: HYDROmorphone HCL 2 MG/ML VL/or syr IV PRN (09:15)
[2023-07-20] MEDS ORDERED: VANCOMYCIN 1GM/200ML 200 ML IV SCH (10:00)
[2023-07-20] MEDS ORDERED: MORPHINE SULFATE INJ 2 MG/ml SYRG IV PRN (11:45)
[2023-07-20] MEDS ORDERED: DEXTROSE (50%) 50ML SYRG IV PRN (11:45)
[2023-07-20] MEDS ORDERED: NITROGLYCERIN 0.4 MG SL TAB SL PRN (11:45)
[2023-07-20] MEDS: ACETAMINOPHEN IV 1000 MG/100ML (10MG/ML) IV PRN (14:10)
[2023-07-20] MEDS: ACETAMINOPHEN IV 100 ML IV ONE (14:12)
[2023-07-20 15:39] LABS: Lactic Acid w/Reflex 4.3 mmol/L (0.4-2.0)
[2023-07-20 18:05] VITALS: BP 109/69; PULSE 98; RESP 24; TEMP 99.9; O2SAT 97
[2023-07-20 20:00] VITALS: BP 121/64; PULSE 92; RESP 19; RESP 25; TEMP 98.9; O2SAT 97; O2SAT 98
[2023-07-20 22:00] VITALS: RESP 19; O2SAT 98
[2023-07-20] MEDS: D5W/SOD CHLO 0.9% 1,000 ML IV SCH (22:26)
[2023-07-21] VITALS (14 sets, daily range): BP systolic 119–153; BP diastolic 66–83; PULSE 88–96; RESP 16–25; TEMP 97.7–98.9; O2SAT 91–100
[2023-07-21] MEDS: ACCU-CHEK COMFORT CURVE STRIP VI SCH
[2023-07-21] MEDS: InsuLIN REG 1unit/0.01ml Soln (100units/ml) SC SCH
[2023-07-21] MEDS: MORPHINE SULFATE INJ 2 MG/ml SYRG IV PRN (00:45)
[2023-07-21] MEDS: VANCOMYCIN 1GM/200ML 200 ML IV SCH (04:54)
[2023-07-21 07:59] LABS: Basophils # (auto) 0 10 ^3/uL (0-0.2); Basophils % (auto) 0.1 % (0.0-2.0); Eosinophils # (auto) 0 10 ^3/uL (0-0.8); Eosinophils % (auto) 0.1 % (0.0-7.0); Hematocrit 40.3 % (41.0-53.0); Hemoglobin 12.9 g/dL (13.5-17.5); Lymphocytes # (auto) 1.2 10 ^3/uL (0.4-5.4); Lymphocytes % (auto) 6.9 % (10.0-50.0); Mean Corpuscular Hemoglobin 26.8 pg (28.0-32.0); Mean Corpuscular Hgb Conc. 32.1 g/dL (32.0-36.0); Mean Corpuscular Volume 83.5 fL (80.0-100.0); Monocytes # (auto) 1.1 10 ^3/uL (0-1.3); Monocytes % (auto) 6.8 % (0.0-12.0); Neutrophils # (auto) 14.4 10 ^3/uL (1.6-8.6); Neutrophils % (auto) 86.1 % (37.0-80.0); Nucleated Red Blood Cells % 0.1 %; Red Blood Cells 4.82 10^6/uL (4.5-5.90); Red Cell Distribution Width 16.5 % (11.8-14.3); White Blood Cell 16.8 10^3/uL (4.4-10.8)
[2023-07-21 08:16] LABS: Alanine Aminotransferase 24 U/L (7-40); Albumin 3.1 g/dL (3.2-4.8); Alkaline Phosphatase 74 U/L (46-116); Anion Gap 13 (5-15); Aspartate Aminotransferase 57 U/L (13-40); Bilirubin, Total 0.7 mg/dL (0.2-1.0); Calcium 8.7 mg/dL (8.5-10.1); Carbon Dioxide 20 mmol/L (20-30); Chloride 112 mmol/L (98-107); Phosphorus 3.9 mg/dL (2.4-5.1); Potassium 4.5 mmol/L (3.5-5.1); Sodium 145 mmol/L (136-145); Total Protein 5.3 g/dL (5.7-8.2)
[2023-07-21 08:18] LABS: Blood Urea Nitrogen 32 mg/dL (9-23); Glucose 107 mg/dL (74-106)
[2023-07-21 09:32] LABS: Magnesium 1.8 mg/dL (1.6-2.6)
[2023-07-21] MEDS: ENOXAPARIN SOD 40 MG/0.4 ML SYRINGE SC SCH (09:55)
[2023-07-21] MEDS: D5W/SOD CHL 0.45%/KCL 20MEQ 1,000 ML IV ONE (09:56)
[2023-07-21] MEDS ORDERED: CLINIMIX PER PHARMACY 0 ML IV SCH (11:45)
[2023-07-21] MEDS: SODIUM CHLORIDE 0.9% 1,000 ML IV SCH (14:15)
[2023-07-21] MEDS: AMINO ACID INFUSION IN D10W 1,000 ML IV SCH (20:00)
[2023-07-22] VITALS (7 sets, daily range): BP systolic 115–148; BP diastolic 62–80; PULSE 50–93; RESP 16–19; TEMP 98–100.2; O2SAT 93–98
[2023-07-22 06:01] LABS: Alanine Aminotransferase 18 U/L (7-40); Albumin 2.8 g/dL (3.2-4.8); Alkaline Phosphatase 63 U/L (46-116); Anion Gap 8 (5-15); Aspartate Aminotransferase 43 U/L (13-40); BUN/Creatinine Ratio 33.7 (10.0-20.0); Blood Urea Nitrogen 32 mg/dL (9-23); Calcium 8.1 mg/dL (8.7-10.4); Carbon Dioxide 22 mmol/L (20-30); Chloride 118 mmol/L (98-107); Glucose 99 mg/dL (74-106); Magnesium 2.1 mg/dL (1.6-2.6); Potassium 3.5 mmol/L (3.5-5.1); Sodium 148 mmol/L (136-145)
[2023-07-22 06:02] LABS: Bilirubin, Total 0.7 mg/dL (0.2-1.0); Phosphorus 2.2 mg/dL (2.4-5.1)
[2023-07-22] MEDS: POTASSIUM PHOSPHATE 22 MEQ in SODIUM CHL 0.9% 100 ML IV ONE (12:48)
[2023-07-22 12:58] LABS: Urine Bacteria FEW /hpf (None Seen); Urine Blood 3+ /uL (Negative); Urine Clarity HAZY (Clear); Urine Color Yellow (Yellow); Urine Protein, UAD 2+ (Negative); Urine Specific Gravity 1.029 (1.001-1.035); Urine Urobilinogen Normal (Negative); Urine WBC 5 /hpf (0 - 3); Urine pH 5.5 (5.0-8.0)
[2023-07-23] VITALS (7 sets, daily range): BP systolic 120–149; BP diastolic 67–72; PULSE 68–77; RESP 14–19; TEMP 97.8–99.7; O2SAT 92–98
[2023-07-23 07:20] LABS: Potassium 3.1 mmol/L (3.5-5.1)
[2023-07-23 07:21] LABS: Calcium 7.8 mg/dL (8.7-10.4)
[2023-07-23 07:26] LABS: BUN/Creatinine Ratio 48.6 (10.0-20.0); Magnesium 1.9 mg/dL (1.6-2.6)
[2023-07-23 07:28] LABS: Albumin 2.8 g/dL (3.2-4.8); Phosphorus 1.5 mg/dL (2.4-5.1)
[2023-07-23] MEDS: POTASSIUM PHOSPHATE 44 MEQ in D5W 5% 250 ML IV ONE (13:39)
[2023-07-24] VITALS (7 sets, daily range): BP systolic 101–132; BP diastolic 53–70; PULSE 57–74; RESP 17–19; TEMP 97.6–99.7; O2SAT 95–99
[2023-07-24 07:31] LABS: Calcium 7.9 mg/dL (8.5-10.1)
[2023-07-24 07:36] LABS: Albumin 2.8 g/dL (3.2-4.8); BUN/Creatinine Ratio 26.7 (10.0-20.0)
[2023-07-24 07:38] LABS: Phosphorus 2.3 mg/dL (2.4-5.1)
[2023-07-24 09:20] LABS: Magnesium 1.8 mg/dL (1.6-2.6)
[2023-07-24] MEDS: POTASSIUM PHOSPHATE 22 MEQ in SODIUM CHL 0.9% 100 ML IV ONE (12:08)
[2023-07-24] MEDS: POTASSIUM CHL 20MEQ/100ML 100 ML IV SCH (19:59)
[2023-07-25] VITALS (7 sets, daily range): BP systolic 120–133; BP diastolic 50–59; PULSE 58–65; RESP 17–21; TEMP 97.5–98.3; O2SAT 95–99
[2023-07-25] MEDS: POTASSIUM CHL 20MEQ/100ML 100 ML IV SCH (00:45)
[2023-07-25 10:57] LABS: Chloride 115 mmol/L (98-107); Potassium 3.5 mmol/L (3.5-5.1); Sodium 145 mmol/L (136-145)
[2023-07-25 11:00] LABS: Calcium 7.9 mg/dL (8.5-10.1); Carbon Dioxide 22 mmol/L (20-30)
[2023-07-25 11:05] LABS: BUN/Creatinine Ratio 21.6 (10.0-20.0); Blood Urea Nitrogen 11 mg/dL (9-23); Glucose 109 mg/dL (74-106)
[2023-07-25 11:06] LABS: Alkaline Phosphatase 67 U/L (46-116)
[2023-07-25 11:07] LABS: Alanine Aminotransferase 15 U/L (7-40); Albumin 2.8 g/dL (3.2-4.8); Aspartate Aminotransferase 29 U/L (13-40)
[2023-07-25 11:08] LABS: Bilirubin, Total 0.6 mg/dL (0.2-1.0); Total Protein 4.8 g/dL (5.7-8.2)
[2023-07-25 11:27] LABS: Magnesium 1.7 mg/dL (1.6-2.6)
[2023-07-25] MEDS ORDERED: AUG875T PO (12:31)
[2023-07-25 12:53] LABS: Anion Gap 8 (5-15)
[2023-07-25] MEDS: POTASSIUM PHOSPHATE 22 MEQ in SODIUM CHL 0.9% 100 ML IV ONE (14:49)
[2023-07-26 05:00] VITALS: BP 121/50; PULSE 55; RESP 18; TEMP 98; O2SAT 95
[2023-07-26 08:00] VITALS: PULSE 60
[2023-07-26 09:00] VITALS: BP 117/57; PULSE 58; RESP 16; TEMP 98.1; O2SAT 97
[2023-07-26 09:08] LABS: Alanine Aminotransferase 20 U/L (7-40); Albumin 2.5 g/dL (3.2-4.8); Alkaline Phosphatase 72 U/L (46-116); Anion Gap 6 (5-15); Aspartate Aminotransferase 32 U/L (13-40); Blood Urea Nitrogen 6 mg/dL (9-23); Calcium 7.5 mg/dL (8.7-10.4); Carbon Dioxide 21 mmol/L (20-30); Chloride 113 mmol/L (98-107); Glucose 106 mg/dL (74-106); Magnesium 1.6 mg/dL (1.6-2.6); Potassium 3.7 mmol/L (3.5-5.1); Sodium 140 mmol/L (136-145)
[2023-07-26 09:09] LABS: Bilirubin, Total 0.5 mg/dL (0.2-1.0); Phosphorus 2.4 mg/dL (2.4-5.1); Total Protein 4.7 g/dL (5.7-8.2)
[2023-07-26 11:58] VITALS: BP 116/62; PULSE 60; RESP 18; TEMP 36.7; O2SAT 96
[2023-07-26 13:00] VITALS: BP 124/64; PULSE 62; RESP 16; TEMP 98.3; O2SAT 94
== END 2023-07-26 15:25 | disposition home health service (06) | DRG 853 ==
LOC: EDBD 01:37 → ER 01:37 → TELE 11:44 → DOU IN ICU 18:00 → TELE-EAST 07-21 12:41
PROVIDERS: ADMIT Internal Medicine; ATTEND Internal Medicine
PROC: 0DTJ0ZZ Resection of Appendix, Open Approach (ICD-10-PCS; 2023-07-20)
PROC: 0DN80ZZ Release Small Intestine, Open Approach (ICD-10-PCS; principal; 2023-07-20 07:24)
DX: A41.9 Sepsis, unspecified organism (principal); N17.0 Acute kidney failure with tubular necrosis; K56.50 Intestinal adhesions [bands], unspecified as to partial versus complete obstruction; K55.9 Vascular disorder of intestine, unspecified; M84.451A Pathological fracture, right femur, initial encounter for fracture; R18.8 Other ascites; E11.9 Type 2 diabetes mellitus without complications; F02.C0 Dementia in other diseases classified elsewhere, severe, without behavioral disturbance, psychotic disturbance, mood disturbance, and anxiety; G20.A1 Parkinson's disease without dyskinesia, without mention of fluctuations; M16.12 Unilateral primary osteoarthritis, left hip; G30.9 Alzheimer's disease, unspecified; Z74.01 Bed confinement status; Z80.0 Family history of malignant neoplasm of digestive organs; Z87.440 Personal history of urinary (tract) infections
CPT/HCPCS: 36415; 71045; 73502; 74177; 80053; 80069; 80202; 81001; 82962; 83605; 83690; 83735; 84100; 84132; 84484; 85025; 85610; 85730; 86850; 86900; 86901; 87040; 87070; 87075; 87081; 87086; 87205; G0378; J0131; J0330; J1815; J2405; J2543; J2704; J3480; J7060